=== PATIENT | female | born 1955 | race African-American/Black ===

== ENCOUNTER → 2019-07-25 11:32 | Outpatient (CLI) | payer BC, SELFPAY ==
--- NOTE | ~2019-07-25 | XR_ITS ---
XR chest 2V DATE: 07/25/2019 11:50 INDICATION: Fever, body aches, pneumonia. TECHNIQUE: PA and lateral views COMPARISON: None FINDINGS: There is mild discoid atelectasis or scarring in the right lower lobe. The lungs otherwise appear clear. No pleural effusion or pulmonary vascular congestion or pneumothorax. No hilar or media stinal enlargement. Heart size appears within upper limits of normal. There is aortic unfolding. Osteopenia. IMPRESSION: Mild discoid atelectasis or scarring, right lower lobe Reviewed, dictated and finalized at location B. INIZER
== END ==
PROVIDERS: PCP Emergency Medicine; Visit Provider Emergency Medicine
DX: J18.9 Pneumonia, unspecified organism (principal); R91.8 Other nonspecific abnormal finding of lung field
CPT/HCPCS: 71046

== ENCOUNTER 2019-07-28 17:09 | Outpatient (CLI) | payer BC, SELFPAY ==
--- NOTE | ~2019-07-28 | NM_ITS ---
EXAMINATION: NM lung vent and perfusion DATE: 07/28/2019 18:19 INDICATION: Shortness of breath. Pneumonia. TECHNIQUE: 25 mCi xenon-133 by inhalation and 3.5 mCi Tc-99m MAA by intravenous route. Scintigraphic images of the chest were obtained. COMPARISON: Chest radiograph dated 07/28/2019 FINDINGS: There is homogeneous radiotracer activity throughout the lungs on the single breath ventilation seque nce. There is relatively homogeneous perfusion throughout the lungs. No discrete ventilation and pe rfusion mismatch is identified. IMPRESSION: 1. Low probability for pulmonary embolism. Reviewed, dictated and finalized at location A. CONTROL CLERK
--- NOTE | ~2019-07-28 | XR_ITS ---
EXAMINATION: XR chest 2V DATE: 07/28/2019 18:18 INDICATION: Shortness of breath and pneumonia TECHNIQUE: PA and lateral views of the chest were obtained. COMPARISON: Chest radiograph dated 07/25/2019 FINDINGS: The lungs remain clear with no focal airspace opacities, pulmonary edema, pleural effusion or pneumot horax. The cardiomediastinal silhouette is normal. Upper thoracic kyphosis with mild spondylosis. IMPRESSION: 1. No acute cardiopulmonary disease. Reviewed, dictated and finalized at location A. TEST LEAD
== END 2019-07-28 17:10 | disposition home or self-care (01) ==
LOC: ANHIMG 17:15
PROVIDERS: PCP Emergency Medicine; Visit Provider Emergency Medicine
DX: R06.02 Shortness of breath (principal)
CPT/HCPCS: 71046; 78582; A9540; A9558

== ENCOUNTER 2019-10-04 12:07 | Outpatient (CLI) | payer BC, SELFPAY ==
[2019-10-04 12:29] LABS: Basophils Percent Auto 0.4 % (0.2-1.2); Eosinophils Absolute Auto 0.3 K/mm3 (0-0.3); Eosinophils Percent Auto 3.1 % (0-4.4); Hematocrit 37.6 % (37.0-47.0); Hemoglobin 13.1 g/dL (12.0-15.0); Immature Granulocyte Absolute 0.04 K/mm3 (0.00-0.031); Immature Granulocyte Percent A 0.4 % (0-0.5); Lymphocytes Absolute Auto 3.21 K/mm3 (0.9-3.2); Lymphocytes Percent Auto 35.5 % (18.3-44.2); Mean Corpuscular HGB Conc 34.8 g/dl (32-36); Mean Corpuscular Volume 80.3 fl (80-100); Mean Platelet Volume 10.3 fl (7.4-10.4); Monocytes Percent Auto 10.5 % (2.6-8.5); Neutrophils Absolute Auto 4.5 K/mm3 (1.3-6.7); Neutrophils Percent Auto 50.1 % (45.5-73.1); Platelet Count Result 285 k/mm3 (150-375); Red Blood Count 4.68 M/mm3 (4.2-5.4); Red Cell Distribution Width 14.5 % (11.5-14.5); White Blood Count 9.1 K/mm3 (4.5-10.0)
[2019-10-04 12:42] LABS: Alanine Aminotransferase 21 U/L (4-35); Albumin Level 3.9 g/dL (3.5-5.1); Alkaline Phosphatase 170 U/L (38-126); Aspartate Amino Transferase 33 U/L (14-36); Bilirubin,Total 0.5 mg/dL (0.2-1.3); Estimated Glomerular Filt Rate > 60
[2019-10-04 13:00] LABS: Rheumatoid Factor > 120.0 IU/ML (<12)
== END 2019-10-04 12:08 | disposition home or self-care (01) ==
PROVIDERS: PCP Emergency Medicine; Visit Provider Internal Medicine Rheumatology
DX: M05.722 Rheumatoid arthritis with rheumatoid factor of left elbow without organ or systems involvement (principal)
CPT/HCPCS: 36415; 80076; 82565; 85025; 86430

== ENCOUNTER 2019-11-10 08:59 | Outpatient (CLI) | payer BC, SELFPAY | END 2019-11-10 09:00 | disposition home or self-care (01) | PROVIDERS: PCP Emergency Medicine; Visit Provider Emergency Medicine | DX: E03.9 Hypothyroidism, unspecified (principal) | CPT/HCPCS: 36415; 84443 ==

== ENCOUNTER 2020-05-11 01:28 | Outpatient (CLI) | payer MEDICARE, SELFPAY ==
[2020-05-12 14:16] LABS: SARS-CoV-2 RNA PCR Positive
== END 2020-05-11 01:29 | disposition home or self-care (01) ==
LOC: ANHCOVIDDT 01:28
PROVIDERS: PCP Emergency Medicine; Visit Provider Internal Medicine Gastroenterology
DX: Z01.812 Encounter for preprocedural laboratory examination (principal); U07.1 COVID-19
CPT/HCPCS: 87635; C9803; U0003

== ENCOUNTER 2020-07-12 11:02 | Outpatient (CLI) | payer MEDICARE, SELFPAY | END 2020-07-12 11:03 | disposition home or self-care (01) | PROVIDERS: PCP Emergency Medicine; Visit Provider Emergency Medicine | DX: E03.9 Hypothyroidism, unspecified (principal) | CPT/HCPCS: 36415; 84443 ==

== ENCOUNTER 2020-08-02 12:32 | Outpatient (CLI) | payer MEDICARE, SELFPAY ==
--- NOTE | ~2020-08-02 | DEXA_ITS ---
Bone Density Report Name: Leisa Lowe Age: 65 Sex: Female Ethnicity: Black Date of : 1955 Indication: postmenopausal osteoporosis; height loss; cancer; rheumatoid arthritis; Referring Provider: MARTA MENDES Study: Bone densitometry was performed. Exam Date: August 02, 2020 Accession number: [id number] Bone Density: Region BMD T-score Z-score Classification AP Spine (L1, L2, L3) 0.754 -2.4 -1.4 Osteopenia Femoral Neck (Left) 0.642 -1.9 -0.9 Osteopenia Total Hip (Left) 0.700 -2.0 -1.1 Osteopenia Total Hip Bilateral Avg 0.687 -2.1 -1.2 Osteopenia Femoral Neck (Right) 0.650 -1.8 -0.8 Osteopenia Total Hip (Right) 0.673 -2.2 -1.3 Osteopenia World Health Organization criteria for BMD impression classify patients as: Normal (T-score at or above -1.0), Osteopenia (T-score between -1.0 and -2.5), or Osteoporosis (T-score at or below -2.5). 10-year Fracture Risk(1): Major Osteoporotic Fracture 5.8% Hip Fracture 0.8% Reported Risk Factors: [place] (Black), Neck BMD=0.642, BMI=28.5, rheumatoid arthritis (1) FRAX(R) Version 3.08. Fracture probability calculated for an untreated patient. Fracture probability may be lower if the patient has received treatment. Previous Exams: Region Exam Age BMD T-score BMD Change BMD Change Date g/cm2 vs Baseline vs Previous AP Spine(L1, L2, L3) 08/02/2020 65 0.754 -2.4 -0.012(-1.6%) 0.019(2.6%) 03/31/2019 64 0.735 -2.6 -0.031(-4.0%)* -0.031(-4.0%)* 05/26/2016 61 0.766 -2.3 Total Hip(Left) 08/02/2020 65 0.700 -2.0 -0.044(-5.9%)* 0.002(0.2%) 03/31/2019 64 0.699 -2.0 -0.045(-6.1%)* -0.045(-6.1%)* 05/26/2016 61 0.744 -1.6 Total Hip(Right) 08/02/2020 65 0.673 -2.2 -0.059(-8.0%)* 0.029(4.5%)* 03/31/2019 64 0.643 -2.4 -0.088(-12.0%) -0.088(-12.0%) 05/26/2016 61 0.731 -1.7 *Denotes significance at 95% confidence level, LSC for AP Spine = 0.022 g/cm2, LSC for Total Hip = 0.027 g/cm2 Clinical Information Provided by Patient: Has rheumatoid arthritis Has used the following medications: Vitamin D, Calcium Has the following medical conditions: Cancer Patient maximum height was 67 Menopause Age: 49 No regular weight bearing exercise Onset of menses at age 12 Number of children 3 Impression: The patient has low bone mass, based on the Total Spine T-score. The patient has an estimated ten-year risk of hip fracture of 0.8% and an estimated ten-year risk of ma
== END 2020-08-02 12:33 | disposition home or self-care (01) ==
LOC: ANHIMG 12:33
PROVIDERS: PCP Emergency Medicine; Visit Provider Obstetrics & Gynecology
DX: N95.1 Menopausal and female climacteric states (principal); M81.0 Age-related osteoporosis without current pathological fracture; M85.051 Fibrous dysplasia (monostotic), right thigh; M85.852 Other specified disorders of bone density and structure, left thigh
CPT/HCPCS: 77080

== ENCOUNTER → 2020-11-23 00:58 | Outpatient (CLI) | payer MEDICARE, SELFPAY ==
[2020-11-23 19:38] LABS: SARS-CoV-2 RNA PCR Negative
== END ==
PROVIDERS: PCP Emergency Medicine; Visit Provider Internal Medicine Gastroenterology
DX: Z01.812 Encounter for preprocedural laboratory examination (principal); Z20.822 Contact with and (suspected) exposure to COVID-19
CPT/HCPCS: C9803; U0003; U0005

== ENCOUNTER 2020-11-26 01:33 | Day surgery (SDC) | payer MEDICARE, SELFPAY ==
[2020-11-20 14:56] VITALS: BMI 27.4
[2020-11-26 08:01] VITALS: BP 130/85; PULSE 76; RESP 18; TEMP 36.4; O2SAT 100; BMI 27.9
[2020-11-26] MEDS: LACTATED RINGERS 1,000 ML 150 ML IV CONT (08:14)
--- NOTE | 2020-11-26 08:23 | WPDANESEPPF ---
Anes - Initial Pre Proc Eval Procedure: Operation Date: 11/26/20 09:00 Proposed Procedures p Screening Colonoscopy - Jaswinder Arndt MD Date/Time: 11/26/20 08:23 Surgeon: Jaswinder Arndt MD Pre Op Diagnosis: neoplasm screening Patient Data Age: 65 Gender: F Height: 5 ft 7 in Weight: 81 kg Last Vital Signs Temp 97.5 F L 11/26/20 08:01 Pulse 76 11/26/20 08:01 Resp 18 11/26/20 08:01 BP 130/85 11/26/20 08:01 Pulse Ox 100 11/26/20 08:01 Allergies Allergy/AdvReac Type Severity Reaction Status Date / Time Sulfa (Sulfonamide Allergy Unknown Other Verified 11/26/20 08:00 Antibiotics) Home Medications Medication Instructions Recorded Confirmed Type folic acid 1 mg tablet 1 mg PO DAILY 04/17/20 11/20/20 History hydrochlorothiazide 12.5 mg tablet 12.5 mg PO DAILY 04/17/20 11/20/20 History levothyroxine 125 mcg tablet 125 mcg PO DAILY 04/17/20 11/20/20 History methotrexate sodium 2.5 mg tablet See Rx Instructions PO WEEKLY 06/11/20 11/20/20 History black cohosh 80 mg PO DAILY 11/20/20 11/20/20 History calcium carbonate-vitamin D3 1 tablet PO DAILY 11/20/20 11/20/20 History [Calcium + D] ergocalciferol (vitamin D2) 50,000 unit PO WEEKLY 11/20/20 11/20/20 History [Vitamin D2] Patient hx anesthesia problems: none Family hx anesthesia problems: none PMFSH Past Medical History Medical History (Updated 06/11/20 @ 10:06 by Nithya Zendejas MD) History of vaginal delivery x 3 Hypertension Hypothyroidism Rheumatoid arthritis Surgical History Surgical History (Updated 06/11/20 @ 10:17 by Carley Sandoval MA) History of bunionectomy History of cataract surgery History of exploratory laparotomy History of hammertoe correction History of knee surgery History of tubal ligation Family History Family History (Updated 06/11/20 @ 09:51 by Carley Sandoval MA) Father Diabetes mellitus Mother Hyperlipidemia Other Family history of rheumatoid arthritis Social History Social History Smoking status: Never smoker Alcohol intake: never Living arrangements: with family Spiritual care concerns: No Anes - Eval Final PreProcedure Day of Procedure 11/26/20 08:23 Patient weight: overweight Heart: regular rate and rhythm Lungs: clear to auscultation Airway: Mallampati scale class II Neurological: alert and oriented Last oral intake: >/= 8 hours ASA classification: III Emergent: no Anesthetic plan: proceed Anesthesia type and monitoring: general GIVS and standard monitoring Informed Consent: The patient's anesthetic plan and its attendant risks and benefits were discussed with the patient/family/POA. Questions were solicited and answers provided to the satisfaction of the patient/family/POA.
--- NOTE | 2020-11-26 08:51 | PM.HPGS ---
History of Present Illness History of Present Illness Consent: Risks, benefits, and alternatives have been discussed and questions answered. Patient agrees to proceed with procedure. Chief complaint: neoplasm screening Narrative: Leisa Lowe is a 65 year old female with colon polyp more than 5 years ago. Review of Systems Constitutional: Constitutional: Denies headache(s) and Denies weakness Eyes: Eyes: Denies blurry vision ENT: Reports Normal hearing present, Denies headache(s) and Denies neck pain Cardiovascular: Cardiovascular: Denies chest pain and Denies dyspnea Respiratory: Respiratory: Denies dyspnea Gastrointestinal: Gastrointestinal: Reports no additional gastrointestinal complaints Genitourinary: Genitourinary: Denies dysuria Musculoskeletal: Musculoskeletal: Denies neck pain Integumentary/Breasts: Skin/Breast: Denies dry skin Neurologic: Reports Normal hearing present, Denies headache(s) and Denies weakness Psychiatric: Psychiatric: Denies anxiety Endocrine: Endocrine: Denies change in body appearance Hematologic/Lymphatic: Hematologic/Lymphatic: Denies easy bleeding Allergic/Immunologic: Allergic/Immunologic: Denies urticaria PMFSH Past Medical History Medical History (Updated 11/26/20 @ 08:52 by Jaswinder Arndt MD) Colon polyp History of vaginal delivery x 3 Hypertension Hypothyroidism Rheumatoid arthritis Surgical History Surgical History (Updated 06/11/20 @ 10:17 by Carley Sandoval MA) History of bunionectomy History of cataract surgery History of exploratory laparotomy History of hammertoe correction History of knee surgery History of tubal ligation Family History Family History (Updated 06/11/20 @ 09:51 by Carley Sandoval MA) Father Diabetes mellitus Mother Hyperlipidemia Other Family history of rheumatoid arthritis Social History Social History Smoking status: Never smoker Alcohol intake: never Living arrangements: with family Spiritual care concerns: No Meds Home Medications and Allergies Home Medications Medication Instructions Recorded Confirmed Type folic acid 1 mg tablet 1 mg PO DAILY 04/17/20 11/20/20 History hydrochlorothiazide 12.5 mg tablet 12.5 mg PO DAILY 04/17/20 11/20/20 History levothyroxine 125 mcg tablet 125 mcg PO DAILY 04/17/20 11/20/20 History methotrexate sodium 2.5 mg tablet See Rx Instructions PO WEEKLY 06/11/20 11/20/20 History black cohosh 80 mg PO DAILY 11/20/20 11/20/20 History calcium carbonate-vitamin D3 1 tablet PO DAILY 11/20/20 11/20/20 History [Calcium + D] ergocalciferol (vitamin D2) 50,000 unit PO WEEKLY 11/20/20 11/20/20 History [Vitamin D2] Allergies Allergy/AdvReac Type Severity Reaction Status Date / Time Sulfa (Sulfonamide Allergy Unknown Other Verified 11/26/20 08:00 Antibiotics) Vital Signs Vital Signs - 24 hr 11/26/20 08:01 Temperature 97.5 F L Pulse Rate 76 Respiratory Rate 18 Blood Pressure 130/85 Pulse Oximetry 100 Exam Const: General: comfortable and no acute distress HENMT: General nose exam: Normal nares present Eyes: General: appearance normal, both eyes and all related structures Neck: Neck: no JVD Resp: Auscultation: clear to auscultation bilaterally Cardio: Rate: regular rate Rhythm: regular rhythm GI: Inspection: non-distended GI Palp: Yes Soft to palpation Skin: General skin exam: normal color Neuro: General: gait normal Speech: normal speech Extrem: General: normal to inspection Psych: Mental Status: mental status grossly normal Assessment and Plan Assessment and plan (1) Colon polyp: Code(s): K63.5 - Polyp of colon Status: Acute Assessment and Plan: colonoscopy
[2020-11-26 09:11] VITALS: BP 113/74; PULSE 82; RESP 22; O2SAT 100
[2020-11-26 09:21] VITALS: BP 122/75; PULSE 73; RESP 16; O2SAT 100
[2020-11-26 09:31] VITALS: BP 132/93; PULSE 69; RESP 24; O2SAT 100
== END 2020-11-26 09:44 | disposition home or self-care (01) ==
PROVIDERS: PCP Emergency Medicine; Visit Provider Internal Medicine Gastroenterology
PROC: 0DJD8ZZ Inspection of Lower Intestinal Tract, Via Natural or Artificial Opening Endoscopic (ICD-10-PCS; CPT 45378; principal; 2020-11-26 09:00)
DX: Z12.11 Encounter for screening for malignant neoplasm of colon (principal); Z86.010 Personal history of colon polyps; K64.8 Other hemorrhoids; E03.9 Hypothyroidism, unspecified; M06.9 Rheumatoid arthritis, unspecified; I10 Essential (primary) hypertension
CPT/HCPCS: G0105; C9803; J2704; J7120; U0003; U0005

== ENCOUNTER 2021-03-24 08:22 | Outpatient (CLI) | payer MEDICARE, SELFPAY ==
[2021-03-24 09:05] LABS: Anion Gap 3 mmol/L (8-16); Blood Urea Nitrogen 14 mg/dL (7-17); Calcium 8.9 mg/dL (8.4-10.2); Carbon Dioxide 32 mmol/L (22-30); Chloride 104 mmol/L (98-107); Estimated Glomerular Filt Rate > 60; Glucose 100 mg/dL (65-110); Potassium 3.6 mmol/L (3.4-5.0); Sodium 139 mmol/L (137-145)
== END 2021-03-24 08:23 | disposition home or self-care (01) ==
LOC: ANHSURGERY 08:27
PROVIDERS: Anesthesiology; PCP Emergency Medicine; Visit Provider Podiatrist Foot & Ankle Surgery
DX: Z01.818 Encounter for other preprocedural examination (principal); I10 Essential (primary) hypertension
CPT/HCPCS: 36415; 80048

== ENCOUNTER 2021-03-28 01:04 | Day surgery (SDC) | payer MEDICARE, SELFPAY ==
[2021-03-20 14:16] VITALS: BMI 27.8
--- NOTE | ~2021-03-28 | XR_ITS ---
EXAMINATION: XR surgery orthopedic DATE: 03/28/2021 12:01 INDICATION: Left foot surgery TECHNIQUE: 2 fluoroscopic images of the left forefoot were obtained during procedure performed by Dr. Wheeler. Radiologist was not present for the imaging or procedure. The amount of fluoroscopy time u sed during this procedure was 0.1 minutes. COMPARISON: None. FINDINGS: Left second proximal interphalangeal joint arthrodesis with placement of a compression screw fixation over an axially directed percutaneous pin which extends from the tuft of the distal phalanx througho ut the second toe to the head of the second metatarsal. Expected small amount of soft tissue gas at t he operative bed. Chronic appearing osteotomies at the heads of the third-fifth proximal phalanges. A dditional chronic appearing osteotomies likely for hallux valgus correction with pin fixations at the neck of the first metatarsal across the diaphysis of the first proximal phalanx. There appears also been a prior bunionectomy. Alignment of the left forefoot appears near-anatomic. No acute fracture. IMPRESSION: 1. Fluoroscopy utilized during second proximal interphalangeal joint arthrodesis with compression scr ew fixation. 2. Additional chronic-appearing postoperative changes in the forefoot. Correlate with surgical histor y. Reviewed, dictated and finalized at location A. IMPRESSION: 1. Fluoroscopy utilized during second proximal interphalangeal joint arthrodesi s with compression screw fixation. 2. Additional chronic-appearing postoperative changes in the forefoot. Correlat e with surgical history.
--- NOTE | 2021-03-28 07:19 | WPDHPUPDATE1 ---
History and Physical Update Update Date/Time: 03/28/21 07:19 History and Physical has been reviewed, including an updated exam of the patient. There are NO changes in the patient's condition. Risks, benefits, and alternatives have been discussed and questions answered. Patient agrees to proceed with procedure.
[2021-03-28] MEDS: LACTATED RINGERS 1,000 ML 30 ML IV CONT (09:30)
[2021-03-28 09:45] VITALS: BP 130/83; PULSE 67; RESP 16; TEMP 36.3; O2SAT 100
--- NOTE | 2021-03-28 09:47 | WPDANESEPPF ---
Anes - Initial Pre Proc Eval Procedure: Operation Date: 03/28/21 11:00 Proposed Procedures p Proximal Interphalangeal Joint Arthrodesis Second Digit Left Foot - Jeremiah Wheeler JR, MD Date/Time: 03/28/21 09:47 Surgeon: Jeremiah Wheeler JR, MD Pre Op Diagnosis: Mortons Toe Left Foot Patient Data Age: 66 Gender: F Height: 1.7 m Weight: 80.75 kg Allergies Allergy/AdvReac Type Severity Reaction Status Date / Time Sulfa (Sulfonamide Allergy Unknown Nausea Verified 03/20/21 14:02 Antibiotics) Home Medications Medication Instructions Recorded Confirmed Type folic acid 1 mg tablet 1 mg PO DAILY 04/17/20 03/20/21 History hydrochlorothiazide 12.5 mg tablet 12.5 mg PO DAILY 04/17/20 03/20/21 History levothyroxine 125 mcg tablet 125 mcg PO DAILY 04/17/20 03/20/21 History methotrexate sodium 2.5 mg tablet See Rx Instructions PO WEEKLY 06/11/20 03/20/21 History black cohosh 80 mg PO DAILY 11/20/20 03/20/21 History calcium carbonate-vitamin D3 1 tablet PO DAILY 11/20/20 03/20/21 History [Calcium + D] ergocalciferol (vitamin D2) 50,000 unit PO WEEKLY 11/20/20 03/20/21 History [Vitamin D2] nabumetone 500 mg PO DAILY 03/20/21 03/20/21 History Patient hx anesthesia problems: none Family hx anesthesia problems: none Results Review: All pre-operative results and documents have been reviewed as part of the pre-operative evaluation. [facility] Past Medical History Medical History Colon polyp History of vaginal delivery x 3 Hypertension Hypothyroidism Rheumatoid arthritis Surgical History Surgical History History of bunionectomy History of cataract surgery History of exploratory laparotomy History of hammertoe correction History of knee surgery History of tubal ligation Family History Family History Father Diabetes mellitus Mother Hyperlipidemia Other Family history of rheumatoid arthritis Social History Social History Smoking status: Never smoker Alcohol intake: never Living arrangements: with family Spiritual care concerns: No Anes - Eval Final PreProcedure Day of Procedure 03/28/21 09:47 Patient weight: overweight Heart: regular rate and rhythm Lungs: clear to auscultation Airway: Mallampati scale class II Neurological: alert and oriented Last oral intake: >/= 8 hours ASA classification: III Emergent: no Anesthetic plan: proceed Anesthesia type and monitoring: general GIVS and standard monitoring Results Review: All pre-operative results and documents have been reviewed as part of the pre-operative evaluation. Informed Consent: The patient's anesthetic plan and its attendant risks and benefits were discussed with the patient/family/POA. Questions were solicited and answers provided to the satisfaction of the patient/family/POA.
[2021-03-28] MEDS: ceFAZolin 2 GM/D5W 50 ML 2 GM/50 ML BAG IVPB (11:20)
[2021-03-28] MEDS: LIDOCAINE HCL 2% PF INJ 5 ML VIAL 10 ML INFILTRATE (11:43)
[2021-03-28] MEDS: BUPIVACAINE HCL 0.5% PF 30 ML VIAL 5 ML INFILTRATE (11:45)
[2021-03-28 12:05] VITALS: BP 137/79; PULSE 71; RESP 12; O2SAT 100
--- NOTE | 2021-03-28 12:10 | W.PM.PROC2 ---
Procedure Note - Detailed Date of Procedure 03/28/21 Pre-op Diagnosis Mortons Toe Left Foot Post-op Diagnosis same Procedure Performed Arthrodesis of the proximal interphalangeal joint of the left 2nd digit Surgeon Jeremiah Wheeler JR, DPMargot Anesthesia MAC and local Indications Painful elongated 2nd toe left foot Description of Procedure Under mild sedation, the patient was brought to the operating room, placed on the operating table in the supine position. A pneumatic ankle tourniquet was placed about the patient's ankle. Following general anesthesia, I performed a proximal 2nd metatarsal Omalley Block. The foot was then scrubbed, prepped, and draped in the usual aseptic manner. An Esmarch bandage was then used to examine the patient's foot and pneumatic ankle tourniquet was then inflated. Surgery began in the following manner. Attention was directed to the second digit of the left foot where a 3cm incision was made from the distal interphlangeal joint extending to the 2nd metatarsal head. A transverse tenotomy was created dorsal to the proximal interphalangeal joint, next the head of the proximal phalanx was resected with an oscillating saw blade, the [employer] hammertoe planer was used to denude and prepare the joint for the hammertoe implant from the base of the middle phalanx and distal proximal phalanx. I made sure to adequately shorten the lenght of the 2nd digit. Next, I implanted the [employer] Phalinx size medium hammertoe implant in a cannulated fashion using standard technique. Fluoroscopy was used to make sure that the digit and implant were appropriately positioned. I also used the K wire to hold the 2nd digit in a rectus position by driving the K wire into the 2nd metatarsal. I reapproximated the subcutaneous structures with 4.0 Vicryl and the skin with 4-0 Monocryl. Upon completion of the procedure, the incision was dressed with Steri-Strips, Adaptic, 4 x 4's, Kerlix, and Coban. The pneumatic ankle tourniquet was then deflated and a prompt hyperemic response noted to all digits of the foot. A surgical shoe was then applied. The patient did very well with the procedure and the anesthesia. The patient was transferred to the recovery room with vital signs stable and vascular status intact to all remaining toes of the affected foot. Following a period of postoperative monitoring, the patient will be discharged home on the following written and oral postoperative instructions: 1. Keep the dressing clean, dry, and intact. Use a cast protector bag with showers. 2. The patient should use a surgical shoe for ambulation postoperatively. 3. The patient should be on bedrest with bathroom priviliges and elevate the affected foot when at rest. 4. The patient to contact Dr. Wheeler for all postop care and if any problems arise. 5. Prescriptions were written for Percocet 5/325 dispensed 40 to be taken 1 p.o. q.4 to 6 hours as needed for severe pain. Implants [employer] Medium Phalinx Implant Estimated Blood Loss 1 Drains No Packing No Pathology none sent Complications No immediate complications Condition stable Disposition same day
[2021-03-28 12:35] VITALS: BP 145/78; PULSE 67; RESP 12; O2SAT 97
[2021-03-28 13:00] VITALS: BP 149/85; PULSE 66; RESP 16
[2021-03-28] MEDS: oxyCODONE HCL (*CRX) 5 MG TAB IR PO (13:01)
[2021-03-28 13:30] VITALS: BP 150/79; PULSE 74; RESP 16
[2021-03-28 14:00] VITALS: BP 149/85; PULSE 66; RESP 16
--- NOTE | 2021-03-28 14:46 | SUR.PHASEII ---
1410 PT DRESSED. AWAITING RIDE.
== END 2021-03-28 14:47 | disposition home or self-care (01) ==
PROVIDERS: PCP Emergency Medicine; Visit Provider Podiatrist Foot & Ankle Surgery
PROC: (CPT 28750; principal; 2021-03-28 11:00)
DX: M20.5X2 Other deformities of toe(s) (acquired), left foot (principal); E03.9 Hypothyroidism, unspecified; I10 Essential (primary) hypertension; M06.9 Rheumatoid arthritis, unspecified
CPT/HCPCS: 28285; 36415; 80048; A9270; C1776; J0690; J1100; J2250; J2405; J2704; J3010; J7120

== ENCOUNTER 2021-05-22 13:52 | Outpatient (CLI) | payer MEDICARE, SELFPAY ==
[2021-05-22 14:42] LABS: Basophils Percent Auto 0.4 % (0.2-1.2); Eosinophils Absolute Auto 0.1 K/mm3 (0-0.3); Eosinophils Percent Auto 1.6 % (0-4.4); Hematocrit 36.9 % (37.0-47.0); Hemoglobin 13.3 g/dL (12.0-15.0); Immature Granulocyte Absolute 0.02 K/mm3 (0.00-0.031); Immature Granulocyte Percent A 0.3 % (0-0.5); Lymphocytes Absolute Auto 1.54 K/mm3 (0.9-3.2); Mean Corpuscular Hemoglobin 30.9 pg (26-34); Mean Corpuscular Volume 85.6 fl (80-100); Mean Platelet Volume 10.7 fl (7.4-10.4); Monocytes Absolute Auto 1.4 K/mm3 (0.1-0.6); Monocytes Percent Auto 21.2 % (2.6-8.5); Neutrophils Absolute Auto 3.6 K/mm3 (1.3-6.7); Neutrophils Percent Auto 53.5 % (45.5-73.1); Platelet Count Result 195 k/mm3 (150-375); Red Blood Count 4.31 M/mm3 (4.2-5.4); Red Cell Distribution Width 14.6 % (11.5-14.5); White Blood Count 6.7 K/mm3 (4.5-10.0)
[2021-05-22 15:00] LABS: CRP < 0.5 mg/dL (<1.0)
[2021-05-22 15:56] LABS: Erythrocyte Sedimentation Rate 18 mm/hr (0-20)
[2021-05-22 16:29] LABS: Crystals Synovial Fluid None Seen (None Seen)
[2021-05-22 16:32] LABS: Appearance Synovial Fluid Bloody (Clear); Color Synovial Fluid Red (Colorless); Source Synovial Fluid Synovial fluid
[2021-05-22 16:33] LABS: Lymphocytes Synovial Fluid 26 %; Macrophages Synovial Fluid 20 %; Monocytes Synovial Fluid 28 %; Neutrophils Synovial Fluid 26 % (0-25); Nucleated Cell Synovial Fluid 13741 /uL (0-200)
== END 2021-05-22 13:53 | disposition home or self-care (01) ==
PROVIDERS: PCP Emergency Medicine; Visit Provider Orthopaedic Surgery
DX: M25.461 Effusion, right knee (principal); Z96.651 Presence of right artificial knee joint
CPT/HCPCS: 36415; 85025; 85652; 86140; 89051; 89060

== ENCOUNTER 2021-08-01 14:38 | Outpatient (CLI) | payer MEDICARE, SELFPAY ==
--- NOTE | ~2021-08-01 | MR_ITS ---
EXAMINATION: MR ankle RT wo con DATE: 08/01/2021 15:49 INDICATION: Plantar fasciitis of right foot. Right ankle pain. TECHNIQUE: Magnetic resonance imaging (MRI) of the right ankle was performed without intravenous cont rast. Sequences included sagittal PD-weighted FS FSE, sagittal PD-weighted FSE, coronal PD-weighted F S FSE, coronal PD-weighted FSE, axial PD-weighted FS FSE, and axial PD-weighted FSE. COMPARISON: None. FINDINGS: Medial ankle ligaments: There is heterotopic ossification distal to medial malleolus. There are changes of prior sprain of th e deltoid ligament characterized by increased signal intensity in the superficial component and some disorganized fibers in the deep component. Lateral ankle ligaments: There are changes of prior sprains of talofibular ligament and calcaneofibular ligament characterized by thickening and increased signal intensity. Posterior talofibular ligament is intact. There are ch anges of prior sprain of anterior tibiofibular ligament characterized by increased signal intensity. Posterior tibiofibular ligament is intact. Tendons: There is a longitudinal split tear of peroneus brevis tendon. Peroneus longus tendon is normal. The a nterior and medial ankle tendons are normal. Achilles tendon is normal. Plantar fascia: Normal. Bones/other: Bone alignment is normal. There is an extra-articular stress fracture of body of calcaneus characteri zed by low signal fracture line and surrounding edema-like signal intensity. The talar dome is normal . Fluid: There are small ankle and subtalar joint effusions. IMPRESSION: 1. Stress fracture of body of calcaneus. 2. Normal plantar fascia. 3. Longitudinal split tear of peroneus brevis tendon. Reviewed, dictated and finalized at location E. ING FINISHER
== END 2021-08-01 14:39 ==
LOC: MICIMG 14:39
PROVIDERS: PCP Emergency Medicine; Visit Provider Podiatrist Foot & Ankle Surgery
DX: M72.2 Plantar fascial fibromatosis (principal); M76.71 Peroneal tendinitis, right leg; M84.371A Stress fracture, right ankle, initial encounter for fracture; S96.811A Strain of other specified muscles and tendons at ankle and foot level, right foot, initial encounter
CPT/HCPCS: 73721

== ENCOUNTER 2021-08-26 10:13 | Outpatient (CLI) | payer MEDICARE, SELFPAY ==
--- NOTE | 2021-08-26 10:15 | ECG_ITS ---
Measurements Intervals [place] Rate: 71 P: 48 ND: 124 QRS: 11 QRSD: 83 T: 8 QT: 402 QTc: 439 Interpretive Statements SINUS RHYTHM RIGHT VENTRICULAR CONDUCTION DELAY COMPARED TO ECG 09/28/2018 14:31:04 NO SIGNIFICANT CHANGES Electronically Signed On 08-26-2021 11:29:56 MEAT TRIMMER by Dallas Candelario M.D.
[2021-08-26 10:52] LABS: Anion Gap 3 mmol/L (8-16); Blood Urea Nitrogen 14 mg/dL (7-17); Calcium 8.7 mg/dL (8.4-10.2); Carbon Dioxide 34 mmol/L (22-30); Chloride 105 mmol/L (98-107); Estimated Glomerular Filt Rate > 60; Glucose 98 mg/dL (65-110); Potassium 3.5 mmol/L (3.4-5.0); Sodium 142 mmol/L (137-145)
== END 2021-08-26 10:14 | disposition home or self-care (01) ==
LOC: ANHSURGERY 10:16
PROVIDERS: Anesthesiology; PCP Emergency Medicine; Visit Provider Orthopaedic Surgery
DX: Z01.818 Encounter for other preprocedural examination (principal); I10 Essential (primary) hypertension; I45.9 Conduction disorder, unspecified
CPT/HCPCS: 36415; 80048; 93005

== ENCOUNTER 2021-08-29 01:53 | Day surgery (SDC) | payer MEDICARE, SELFPAY ==
--- NOTE | 2021-08-25 15:26 | PC.NURSE ---
Report to the Outpatient Waiting Room, entrance under the green pavilion located off [facility], at time 1100 on date __08/29/21 . OR Time: _1300 . - You and your visitor will be asked a series of questions to screen for COVID 19 for your protection. - A mask is required within the hospital. Preoperative COVID Testing Requirements: No COVID Test needed if: (proof is required; if not received patient will have Rapid Test prior to entry) - Patient has received COVID Vaccine at least 14 days prior to procedure date or - Patient has positive COVID test result within last 90 days of surgery date. COVID Test needed if above criteria is not met If not COVID vaccinated a COVID test must be conducted within 72 hours of surgery and patient is asked to isolate self from time of testing until procedure. You will go to the [facility] for your COVID testing. The [facility] is located at the corner of [address] [facility]. You will only be called if COVID results are positive and your surgeon may reschedule your elective surgery date. Patients may have clear liquids (water, carbonated beverages, clear teas, apple juice) until 3 hours prior to surgery with a maximum of 20 ounces. - No food from midnight until time of surgery Take the following medications with a SIP of water the morning of surgery: ____LEVOTHYROXINE Medications to discontinue per physician ____ALL VITAMINS AND SUPPLEMENTS 3 DAYS PRE OP Date to take last dose____08/25/21 Please no make-up, nail eritrean, hairspray, perfume, deodorant, or body powder the day of surgery. No jewelry (including any body piercings) or valuables the day of surgery, leave them at home. Please take a shower or bath the night before, or the morning of, surgery with an antibacterial soap. Wear comfortable, loose fitting clothing. Children are encouraged to wear pajamas. - Jewelry must be removed prior to entering the operating room. Rings and piercings that are not removed may be cut off. - The hospital will not accept responsibility for valuables. - Please leave all valuables, including medications, at home the day of surgery. If you are going home after surgery, a licensed ice delivery driver must drive you home. - NO public transportation without another adult. - We recommend that an adult stay with you for 24 hours following discharge. - We also recommend that you do not drive, make important decision, drink alcoholic beverages, or take any drugs that were not prescribed by your health care provider for at least 24 hours after your discharge time. One visitor will be allowed to accompany the patient into the hospital. Patients visitor will be instructed to remain with patient at all times or leave the building. We will allow the visitor to come back to the postoperative area when patient is ready. Follow any additional instructions given to you from your surgeon. Telephone instructions given to __PATIENT and asked if any additional questions and then verbalized understanding. Patient advised to call surgeon office or pre surgery nurse liaison [phone] if any additional questions.
[2021-08-25 15:34] VITALS: BMI 32.5
[2021-08-29] VITALS (9 sets, daily range): BP systolic 132–158; BP diastolic 65–95; PULSE 63–76; RESP 11–16; TEMP 36.4–36.8; O2SAT 94–100
--- NOTE | 2021-08-29 08:55 | P.PNAN_ITS ---
Anes - Initial Pre Proc Eval Procedure: Operation Date: 08/29/21 13:00 Proposed Procedures p Arthroscopic Synovectomy Right Knee - Dontae Eaton MD Date/Time: 08/29/21 08:55 Surgeon: Dontae Eaton MD Pre Op Diagnosis: Synovitis Rt Knee Patient Data Age: 66 Gender: F Height: 1.63 m Weight: 86.2 kg Allergies Allergy/AdvReac Type Severity Reaction Status Date / Time Sulfa (Sulfonamide Allergy Unknown Nausea Verified 08/29/21 11:07 Antibiotics) Home Medications Medication Instructions Recorded Confirmed Type folic acid 1 mg tablet 1 mg PO DAILY 04/17/20 08/29/21 History hydrochlorothiazide 12.5 mg tablet 12.5 mg PO DAILY 04/17/20 08/29/21 History levothyroxine 125 mcg tablet 125 mcg PO DAILY 04/17/20 08/29/21 History methotrexate sodium 2.5 mg tablet See Rx Instructions PO WEEKLY 06/11/20 08/29/21 History black cohosh 80 mg PO DAILY 11/20/20 08/29/21 History calcium carbonate-vitamin D3 1 tablet PO DAILY 11/20/20 08/29/21 History ergocalciferol (vitamin D2) 50,000 unit PO WEEKLY 11/20/20 08/29/21 History [Vitamin D2] nabumetone 500 mg PO DAILY 03/20/21 08/29/21 History hydrocodone 5 mg-acetaminophen 325 1 - 2 tablet PO Q6H PRN #30 tablet 08/12/21 08/25/21 Rx mg tablet MDD 6 Patient hx anesthesia problems: none Family hx anesthesia problems: none Results Review: All pre-operative results and documents have been reviewed as part of the pre-operative evaluation. [facility] Past Medical History Medical History Colon polyp History of vaginal delivery x 3 Hypertension Hypothyroidism Rheumatoid arthritis Surgical History Surgical History History of bunionectomy History of cataract surgery History of exploratory laparotomy History of hammertoe correction History of knee surgery History of total right knee replacement (~11/29/18) History of tubal ligation Family History Family History Father Diabetes mellitus Mother Hyperlipidemia Other Family history of rheumatoid arthritis Social History Social History Smoking status: Never smoker Alcohol intake: never Living arrangements: with family Spiritual care concerns: No Anes - Eval Final PreProcedure Day of Procedure 08/29/21 08:55 Patient weight: obese Heart: regular rate and rhythm Lungs: clear to auscultation and normal air movement Airway: Mallampati scale class III Neurological: alert and oriented Last oral intake: >/= 8 hours ASA classification: III Emergent: no Anesthetic plan: proceed Anesthesia type and monitoring: general LMA and standard monitoring Results Review: All pre-operative results and documents have been reviewed as part of the pre-operative evaluation. Informed Consent: The patient's anesthetic plan and its attendant risks and benefits were discussed with the patient/family/POA. Questions were solicited and answers provided to the satisfaction of the patient/family/POA.
--- NOTE | 2021-08-29 11:17 | W.PM.PROC2 ---
Procedure Note - Detailed Date of Procedure 08/29/21 Pre-op Diagnosis Synovitis right Knee with recurrent hemarthrosis, s/p total knee arthroplasty. Post-op Diagnosis Same Procedure Performed Arthroscopic synovectomy right knee. Surgeon Dontae Eaton MD Staff Command And Control Officer Laure King PA-C Anesthesia General Indications Recurrent painful hemarthrosis, right knee. Findings Large hemarthrosis with synovial hemosiderin staining. No proliferative global synovitis. Primarily lateral synovial hypertrophy and scarring. A large vessel lumen observed and cauterized. Another vessel at the femoral notch observed and cauterized. This was on a notable stalk of tissue. There were two small bony prominences of lateral femoral condyle, possibly causing local tissue irritation. These were smoothed down flush. Moderate proliferative scar about the patella. The implant appeared normal. The patella tracked more centrally after the lateral synovial tissue resection. Exam under anesthesia was unrevealing. Description of Procedure The patient was identified and the surgical site confirmed and signed in the preoperative holding area. Antibiotics were started per protocol. She was brought to the operative room and transferred to the OR table. A general anesthetic was administered. Supine position with the operative lower extremity position in the leg gonzalez after placement of a well padded tourniquet. The leg support was lowered and the contralateral limb was supported with a soft bolster. The knee was prepped and draped in the usual sterile fashion. A time-out was performed. The portal sites were marked and infiltrated with 0.5% Marcaine 20 mL. The limb was exsanguinated and the tourniquet inflated to 300 mL Hg. Standard inferolateral and inferomedial portals were established. Inflow was obtained with the saline pump. The camera was introduced. Diagnostic inspection of the joint was accomplished. The hypertrophic synovium, capsulitis, surgical scar tissue, and prominent lateral bone were debrided with the arthroscopic shaver. The radiofrequency probe was also used for further d?bridement, and cauterization of the two observed arterial lumens. The tourniquet was release and hemostasis confirmed. The arthroscopic instruments were removed. The wounds closed with subcutaneous 4-0 Monocryl absorbable suture. Steri strips and a sterile dressing were applied. A light elastic wrap was placed. The patient was extubated and brought to the recovery room in stable condition. Estimated Blood Loss -20.0 Drains No Packing No Pathology None sent Complications No immediate complications Condition Stable Disposition PACU
[2021-08-29] MEDS: ACETAMINOPHEN 500 MG TABLET 1000 MG PO (11:23)
--- NOTE | 2021-08-29 11:56 | WPDHPUPDATE1 ---
History and Physical Update Update Date/Time: 08/29/21 11:56 History and Physical has been reviewed, including an updated exam of the patient. There are NO changes in the patient's condition. Risks, benefits, and alternatives have been discussed and questions answered. Patient agrees to proceed with procedure.
[2021-08-29] MEDS: LACTATED RINGERS 1,000 ML 30 ML IV CONT ×2 (11:58→13:34)
[2021-08-29] MEDS: KETOROLAC 15 MG/ML VIAL (*BKC) IV PUSH ×2 (11:59→15:47)
[2021-08-29] MEDS: ceFAZolin 2 GM/D5W 50 ML 2 GM/50 ML BAG IVPB (12:12)
[2021-08-29] MEDS: BUPIVACAINE/EPINEPHRINE 0.25% 50 ML VIAL 30 ML INFILTRATE (12:34)
[2021-08-29] MEDS: fentaNYL CITRATE INJ (*CRX) 100 MCG/2 ML VIAL 25 MCG IV PUSH ×7 (13:50→14:36)
[2021-08-29] MEDS: oxyCODONE HCL (*CRX) 5 MG TAB IR PO (15:19)
== END 2021-08-29 17:00 | disposition home or self-care (01) ==
PROVIDERS: PCP Emergency Medicine; Visit Provider Orthopaedic Surgery
PROC: (CPT 29870; principal; 2021-08-29 12:00)
DX: M25.061 Hemarthrosis, right knee (principal); M65.861 Other synovitis and tenosynovitis, right lower leg; Z96.651 Presence of right artificial knee joint; I10 Essential (primary) hypertension; E03.9 Hypothyroidism, unspecified; M06.9 Rheumatoid arthritis, unspecified; E66.9 Obesity, unspecified; Z68.32 Body mass index [BMI] 32.0-32.9, adult
CPT/HCPCS: 29875; 36415; 80048; 93005; A9270; J0690; J1100; J1885; J2250; J2405; J2704; J3010; J7120

== ENCOUNTER 2021-09-12 09:36 | Outpatient (CLI) | payer MEDICARE, SELFPAY ==
--- NOTE | ~2021-09-12 | XR_ITS ---
XR chest 2V DATE: 09/12/2021 09:57 INDICATION: Dyspnea on exertion TECHNIQUE: PA and lateral views COMPARISON: July 28, 2019 PA and lateral chest FINDINGS: Heart size is within normal range. Mild aortic unfolding. No hilar or mediastinal enlargeme nt. Mild bilateral hyperinflation. No pulmonary infiltrate or consolidation, pleural effusion or pulmonar y vascular congestion or pneumothorax. Osteopenia. IMPRESSION: No active cardiopulmonary disease Reviewed, dictated and finalized at location A.
== END 2021-09-12 09:37 | disposition home or self-care (01) ==
LOC: ANHIMG 09:39
PROVIDERS: PCP Emergency Medicine; Visit Provider Emergency Medicine
DX: R06.00 Dyspnea, unspecified (principal)
CPT/HCPCS: 71046

== ENCOUNTER 2021-09-16 07:54 | Outpatient (CLI) | payer MEDICARE, SELFPAY ==
--- NOTE | ~2021-09-16 | XR_ITS ---
EXAMINATION: XR UGIAC w barium swallow DATE: 09/16/2021 08:47 INDICATION: Dysphagia TECHNIQUE: The patient drank thick barium, gas-producing crystals, and thin barium. A total of 1270 f luoroscopic images of the esophagus, stomach, and proximal small bowel were obtained. Fluoroscopy exp osure time was 2.6 minutes. COMPARISON: None. FINDINGS: The esophagus is normal without mass or stricture. Esophageal motility is within normal dinh its for age. Small sliding-type hiatal hernia with gastroesophageal junction proximally 5 cm above le bowen of the diaphragm. There was no gastroesophageal reflux with provocative maneuvers. The stomach an d proximal small bowel are normal. IMPRESSION: 1. Small sliding-type hiatal hernia. Reviewed, dictated and finalized at location A.
--- NOTE | ~2021-09-16 | US_ITS ---
EXAMINATION: US venous doppler [facility] DATE: 09/16/2021 09:15 INDICATION: Venous insufficiency TECHNIQUE: Grayscale ultrasound images without and with compression and Doppler ultrasound images of the bilateral lower extremity veins were obtained. COMPARISON: None. FINDINGS: The visualized portions of right common femoral vein, profunda (deep) femoral vein, femoral vein, pop liteal vein, posterior tibial veins, peroneal veins, gastrocnemius vein and greater saphenous vein ou tflow are patent. The visualized portions of left common femoral vein, profunda femoral vein, femoral vein, popliteal v ein, posterior tibial veins, peroneal veins, gastrocnemius vein and greater saphenous vein outflow ar e patent. IMPRESSION: 1. No deep venous thrombosis in either lower limb. Reviewed, dictated and finalized at location A.
== END 2021-09-16 07:55 | disposition home or self-care (01) ==
LOC: ANHIMG 07:59
PROVIDERS: PCP Emergency Medicine; Visit Provider Emergency Medicine
DX: R13.10 Dysphagia, unspecified (principal); I87.2 Venous insufficiency (chronic) (peripheral); K44.9 Diaphragmatic hernia without obstruction or gangrene; M79.89 Other specified soft tissue disorders
CPT/HCPCS: 74246; 93970

== ENCOUNTER 2021-10-14 07:03 | Outpatient (CLI) | payer MEDICARE, SELFPAY ==
--- NOTE | 2021-10-14 | ECHO_ITS ---
Patient Info Name: Leisa Lowe Age: 66 years : 1955 Gender: Female Ht: 64 in Wt: 185 lbs BSA: 1.98 m2 HR: 85 bpm BP: 160 / 116 mmHg Technical Quality: Good Exam Date: 10/14/2021 7:52 AM Exam Location: [facility] Patient Status: Outpatient Admit Date: 10/14/2021 Staff Ordering Physician: Alex Bauer MD Electric Meter Repairer Helper: Dillon Paez RDCS, RT Attending Provider: Alex Bauer MD Referring Physician: Juancarlos RAMIREZ; Exam Type: CA echo doppler color flow Study Info Indications R06.00 - Dyspnea, unspecified Complete two-dimensional, color flow and Doppler transthoracic echocardiogram is performed. Strain analysis performed. Summary 1. Complete two-dimensional, color flow and Doppler transthoracic echocardiogram is performed. 2. Left ventricular chamber dimension is normal. 3. Left ventricular systolic function is normal, estimated at 65-70%. 4. The left ventricular diastolic function is grade I diastolic dysfunction. 5. E/e' 8 is minimally elevated. 6. Global longitudinal strain is normal at -17.5%. 7. There is mild tricuspid valve regurgitation. 8. Mild pulmonary hypertension, estimated pulmonary arterial systolic pressure is 40 mmHg. 9. Dilated inferior vena cava with >50% collapse upon inspiration consistent with elevated right atrial pressure, 10 mmHg. Left Ventricle E/e' 8 is minimally elevated. Global longitudinal strain is normal at -17.5%. Left ventricular chamber dimension is normal. Left ventricular systolic function is normal, estimated at 65-70%. The left ventricular diastolic function is grade I diastolic dysfunction. Right Ventricle Right ventricular systolic function is normal and with normal TAPSE 2.2 cm. Right ventricular chamber dimension is normal. Left Atria Left atrial chamber dimension is normal. Right Atria Right atrial chamber dimension is normal. Aortic Valve The aortic valve is trileaflet. There is no aortic valve stenosis. There is no aortic valve regurgitation. Pulmonic Valve There is no pulmonic regurgitation. Mitral Valve There is no mitral valve stenosis. There is no mitral valve regurgitation. Tricuspid Valve There is mild tricuspid valve regurgitation. Mild pulmonary hypertension, estimated pulmonary arterial systolic pressure is 40 mmHg. Pericardium/Pleural There is no pericardial effusion. Inferior Vena Cava Dilated inferior vena cava with >50% collapse upon inspiration consistent with elevated right atrial pressure, 10 mmHg. Aorta The aortic root size at the sinus of Valsalva is normal. Left Ventricular Outflow Tract Name Value Normal LVOT 2D LVOT Diameter 2.0 cm LVOT Doppler LVOT Peak Gradient 2 mmHg LVOT Mean Gradient 1 mmHg LVOT VTI 18 cm LVOT VTI/AV VTI Ratio 0.8 LVOT Stroke Volume 58 ml LVOT CO 4.1 l/min LVOT CI 2.1 l/min/m2 Mitral Valve
== END 2021-10-14 07:04 | disposition home or self-care (01) ==
PROVIDERS: PCP Emergency Medicine; Visit Provider Emergency Medicine
DX: I27.20 Pulmonary hypertension, unspecified (principal); I36.1 Nonrheumatic tricuspid (valve) insufficiency; R06.00 Dyspnea, unspecified
CPT/HCPCS: 93306

== ENCOUNTER 2022-01-26 13:32 | Outpatient (CLI) | payer MEDICARE, SELFPAY ==
--- NOTE | ~2022-01-26 | CT_ITS ---
EXAMINATION: CTA chest PE protocol DATE: 01/26/2022 13:58 INDICATION: Shortness of breath, cough for 2 months TECHNIQUE: Computed tomography angiography (CTA) of the chest was performed with 100 mL Omnipaque-350 intravenous contrast timed to evaluate the pulmonary arteries. Coronal maximum intensity projection 3D-reconstructions were created by the technologist. Automated exposure control and iterative reconst ruction technique were employed. Exam dose: 232.11 mGy-cm total exam DLP. COMPARISON: 09/12/2021 PA and lateral chest FINDINGS: There is diagnostic contrast enhancement of the pulmonary arteries and no evidence of pulmo nary embolism. No thoracic aortic aneurysm or dissection is evident. No hilar or mediastinal mass lesion or lymphadenopathy. Normal heart size. No pleural effusion. Scattered minimal bilateral dependent and discoid atelectasis or scarring of the lungs. No pulmonary infiltrate or consolidation. Incidentally noted is prominent right hydroureteronephrosis and right pelviectasis. Mild left hydrone phrosis. Degenerative disc disease of lower cervical spine, mild degenerative spurring of the thoracic spine. IMPRESSION: No evidence of pulmonary embolism Bilateral hydronephrosis, greater on the right Reviewed, dictated and finalized at Location A. Reviewed, dictated and finalized at location B.
[2022-01-26 13:53] LABS: Estimated Glomerular Filt Rate > 60
== END 2022-01-26 13:33 | disposition home or self-care (01) ==
PROVIDERS: PCP Emergency Medicine; Visit Provider Emergency Medicine
DX: R06.02 Shortness of breath (principal); N20.0 Calculus of kidney
CPT/HCPCS: 71275; Q9967

== ENCOUNTER 2022-02-24 14:20 | Outpatient (CLI) | payer MEDICARE, SELFPAY ==
--- NOTE | ~2022-02-24 | CT_ITS ---
EXAMINATION: CT abdomen pelvis wo/w con DATE: 02/24/2022 15:08 INDICATION: Hydronephrosis TECHNIQUE: Computed tomography (CT) of the abdomen and pelvis was performed without intravenous contr ast. CT of the abdomen and pelvis was then performed with a total of 130 mL Omnipaque-350 intravenous contrast using a double-bolus technique for simultaneous opacification of the renal parenchyma and r enal collecting system. Automated exposure control and iterative reconstruction technique were employ ed. The dose-length product was 1666.62 mGy-cm. COMPARISON: None FINDINGS: Minimal dependent atelectasis in the bilateral lower lobes. Heart size is normal. No pericardial or p leural effusion. Small sliding-type hiatal hernia. Subcentimeter cyst at the ligamentum teres. Gallbl adder, spleen, pancreas and bilateral adrenal glands are normal. Common bile duct measures up to 6 mm which is within normal limits. 5 mm obstructing distal right ureteral stone approximately 4-5 cephal ad centimeter proximal to the ureterovesicular junction. There is moderate right hydronephrosis with posterior layering contrast within the dilated calyces of the right kidney on postcontrast imaging. 1 mm nonobstructing stone at an upper pole calyx of the left kidney. There are few small peripelvic cy sts at the lower pole of the left kidney. No left-sided hydronephrosis. The proximal half of the left ureter is well opacified with contrast demonstrate no urothelial irregularities. Dependently layerin g contrast seen within the incompletely distended, normal bladder. A few small calcifications at the fundus of the anteverted uterus may be related to degenerated fibroids. Bilateral adnexa are unremark able. Moderate amount of stool scattered throughout the normal colon. No bowel obstruction. No free i ntraperitoneal gas or fluid. No pathologically enlarged abdominal or pelvic lymphadenopathy. Tiny fat -containing umbilical hernia. Mild lumbar spondylosis with 3 mm anterolisthesis L4 on L5 and severe b ilateral lower lumbar facet osteoarthritis. IMPRESSION: 1. Bilateral nephrolithiasis with obstructing 5 mm distal right ureteral stone with moderate right an d hydroureteronephrosis. Reviewed, dictated and finalized at location A. IMPRESSION: 1. Bilateral nephrolithiasis with obstructing 5 mm distal right ureteral stone with moderate right and hydroureteronephrosis.
== END 2022-02-24 14:21 | disposition home or self-care (01) ==
PROVIDERS: PCP Emergency Medicine; Visit Provider Emergency Medicine
DX: N13.30 Unspecified hydronephrosis (principal); N20.0 Calculus of kidney; N20.1 Calculus of ureter
CPT/HCPCS: 74178; Q9967

== ENCOUNTER 2022-03-05 21:27 | Emergency (ER) | payer MEDICARE, SELFPAY ==
--- NOTE | ~2022-03-05 | CT_ITS ---
EXAMINATION: CT abdomen pelvis wo con DATE: 03/06/2022 00:49 INDICATION: Kidney stone. Flank pain. TECHNIQUE: Computed tomography (CT) of the abdomen and pelvis was performed without intravenous contr ast. Automated exposure control and iterative reconstruction technique were employed. The dose-lengt h product was 746.60 mGy-cm. COMPARISON: 02/24/2022 FINDINGS: Minimal atelectasis in the dependent lower lobes. Heart size is normal. No pericardial or pleural eff usion. Liver, gallbladder, spleen, pancreas and bilateral adrenal glands are normal. 1 mm nonobstruct ing stone at an upper pole calyx of the left kidney. Unchanged 7 x 5 mm obstructing stone in the dist al right ureter with moderate right hydroureteronephrosis. Decompressed bladder is unremarkable. Calc ifications in the anteverted uterus which could relate to chronic degenerated uterine fibroid. Bilate ral adnexa are unremarkable. Moderate amount of stool scattered throughout the colon. No dilated marisela l to suggest obstruction. Normal appendix. No free intraperitoneal gas or fluid. No pathologically en larged abdominal or pelvic lymphadenopathy. Mild lumbar spondylosis with 3 mm anterolisthesis L4 on L 5 and severe bilateral lower lumbar facet osteoarthritis. IMPRESSION: 1. Bilateral nephrolithiasis with obstructing 7 x 5 mm distal right ureteral stone with moderate righ t hydroureteronephrosis. Reviewed, dictated and finalized at location A. IMPRESSION: 1. Bilateral nephrolithiasis with obstructing 7 x 5 mm distal right ureteral st one with moderate right hydroureteronephrosis.
[2022-03-05 21:48] VITALS: BP 137/80; PULSE 77; RESP 18; TEMP 36.9; O2SAT 100
[2022-03-05 22:57] LABS: Basophils Absolute Auto 0.1 K/mm3 (0.0-0.1); Eosinophils Absolute Auto 0.3 K/mm3 (0-0.3); Eosinophils Percent Auto 3.9 % (0-4.4); Hematocrit 40.2 % (37.0-47.0); Hemoglobin 14.2 g/dL (12.0-15.0); Immature Granulocyte Absolute 0.03 K/mm3 (0.00-0.031); Immature Granulocyte Percent A 0.4 % (0-0.5); Lymphocytes Percent Auto 32.5 % (18.3-44.2); Mean Corpuscular HGB Conc 35.3 g/dl (32-36); Mean Corpuscular Hemoglobin 28.3 pg (26-34); Mean Corpuscular Volume 80.2 fl (80-100); Mean Platelet Volume 11.1 fl (7.4-10.4); Monocytes Absolute Auto 1.2 K/mm3 (0.1-0.6); Monocytes Percent Auto 14.4 % (2.6-8.5); Neutrophils Absolute Auto 3.8 K/mm3 (1.3-6.7); Neutrophils Percent Auto 47.8 % (45.5-73.1); Platelet Count Result 206 k/mm3 (150-375); Red Blood Count 5.01 M/mm3 (4.2-5.4); Red Cell Distribution Width 13.4 % (11.5-14.5)
[2022-03-05 23:06] LABS: Alanine Aminotransferase 30 U/L (6-35); Albumin Level 4.2 g/dL (3.5-5.1); Alkaline Phosphatase 217 U/L (38-126); Anion Gap 12 mmol/L (8-16); Aspartate Amino Transferase 51 U/L (14-36); Bilirubin,Total 0.4 mg/dL (0.2-1.3); Blood Urea Nitrogen 18 mg/dL (7-17); Calcium 8.9 mg/dL (8.4-10.2); Carbon Dioxide 30 mmol/L (22-30); Chloride 102 mmol/L (98-107); Estimated CRCL calculation 54 ml/min; Estimated Glomerular Filt Rate > 60; Glucose 117 mg/dL (65-110); Sodium 144 mmol/L (137-145)
[2022-03-05 23:12] LABS: Appearance Urine Clear (Clear); Bilirubin Urine Negative (Negative); Blood Urine Negative (Negative); Color Urine Yellow (Yellow); Glucose Urine UA Negative (Negative); Ketones Urine Negative (Negative); Leukocyte Esterase Ur Negative LEU/UL (Negative); Nitrate Urine Negative (Negative); Protein Urine Negative (Negative); Urobilinogen Urine 0.2 mg/dL (<2.0)
[2022-03-05 23:50] LABS: Add Urine Microscopic? NO
--- NOTE | 2022-03-06 00:42 | ED.FEMALEGU ---
HPI - Female Genitourinary General Chief complaint: Urogenital-Female Stated complaint: Kidney stone Time Seen by Provider: 03/06/22 00:30 History of Present Illness HPI Narrative: Patient is a 67-year-old female here for evaluation of left flank pain over the past month that has worsened over the past week. Patient has a history of 5 mm distal kidney stone on the right in addition to bilateral nephrolithiasis, was put on Flomax by her PCP and was told to follow-up with urology. She has an appointment next week. Contacted PCP today regarding her pain and was told to come to the ED for pain control. Patient has not attempted any medications at home. No dysuria, urgency or frequency. No fevers, chills, nausea, vomiting. She does note a soreness in both of her flanks but states her pain is worse on the left. Related Data Home Medications Medication Instructions Recorded Confirmed folic acid 1 mg tablet 1 mg PO DAILY 04/17/20 01/07/22 levothyroxine 125 mcg tablet 125 mcg PO DAILY 04/17/20 01/07/22 black cohosh 40 mg tablet 80 mg PO DAILY 11/20/20 01/07/22 calcium carbonate 600 mg-vitamin 1 tablet PO DAILY 11/20/20 01/07/22 D3 5 mcg (200 unit) tablet nabumetone 500 mg tablet 500 mg PO DAILY 03/20/21 01/07/22 Allergies Allergy/AdvReac Type Severity Reaction Status Date / Time Sulfa (Sulfonamide Allergy Unknown Nausea Verified 03/05/22 21:29 Antibiotics) Review of Systems Review of Systems: Gen: Denies fevers or chills Eyes: Denies eye pain or visual change ENT: Denies congestion Respiratory: Denies shortness of breath or cough CV: Denies chest pain or palpitations GI: Denies abdominal pain nausea, emesis or diarrhea denies burning, urgency, frequency or hematuria Musculoskeletal: Reports bilateral flank pain. Neuro: Denies numbness, tingling, weakness or focal weakness Skin: Denies rash Except as documented, all other systems reviewed and negative PMF Past Medical History Medical History Colon polyp History of vaginal delivery x 3 Hypertension Hypothyroidism Rheumatoid arthritis Surgical History Surgical History History of bunionectomy History of cataract surgery History of exploratory laparotomy History of hammertoe correction History of knee surgery History of total right knee replacement (~11/29/18) History of tubal ligation Family History Family History Father Diabetes mellitus Mother Hyperlipidemia Other Family history of rheumatoid arthritis Social History Social History Smoking status: Never smoker Alcohol intake: never Spiritual care concerns: No Exam Narrative: APPEARANCE: Well appearing, no pain in distress, well-nourished. Head: Normocephalic and atraumatic. EYES: PERRLA/EOMI, conjunctivae clear NOSE: No nasal drainage EARS: External ear normal in appearance THROAT: Oropharynx is clear. Mucous membranes are moist. NECK: Supple. No adenopathy, no masses. RESPIRATORY: Airway patent, respirations nonlabored. Clear to auscultation bilaterally, no rales, rhonchi, wheezing. CARDIOVASCULAR: Regular rate and rhythm without murmurs, rubs, or gallops. ABDOMINAL: Normoactive bowel sounds. Soft, nontender, nondistended. No rebound tenderness or guarding. MUSCULOSKELETAL: No CVA tenderness. Extremities are warm and well-perfused. Moves all extremities well. No edema. NEURO: Normal speech. No focal neurologic deficits. SKIN: No rash over flank. Skin is warm and dry. No rashes. PSYCHIATRIC: Normal affect/mood. Course Vital Signs Vital signs: Vital Signs Temperature 98.4 F 03/05/22 21:48 Pulse Rate 77 03/05/22 21:48 Respiratory Rate 18 03/05/22 21:48 Blood Pressure 137/80 03/05/22 21:48 Pulse Oximetry 1
== END 2022-03-06 02:57 | disposition home or self-care (01) ==
PROVIDERS: Emergency Medicine; Emergency Provider Emergency Medicine; PCP Emergency Medicine
DX: N13.2 Hydronephrosis with renal and ureteral calculous obstruction (principal); I10 Essential (primary) hypertension; E03.9 Hypothyroidism, unspecified; M06.9 Rheumatoid arthritis, unspecified; Z86.010 Personal history of colon polyps; Z98.49 Cataract extraction status, unspecified eye; Z96.651 Presence of right artificial knee joint
CPT/HCPCS: 36415; 74176; 80053; 81003; 85025; 99284; A9270

== ENCOUNTER 2022-03-13 01:43 | Day surgery (SDC) | payer MEDICARE, SELFPAY ==
[2022-03-12 16:41] VITALS: BMI 30.8
--- NOTE | 2022-03-12 16:47 | SUR.PREOP ---
Report to the Outpatient Waiting Room, entrance under the green pavilion located off [facility], at time 1200 on date 03/13/22. OR Time: 1400. Time changes happen often and if your time is changed the preop area will call you the afternoon before. - You and your visitor will be asked to self-screen and do not enter if you have any COVID symptoms. - Only one visitor and NO children visitors are allowed at this time. - The patient visitor is requested to leave or wait in car when not with patient due to restrictions. - A mask is required within the hospital. Patients may have clear liquids (water, carbonated beverages, clear teas, apple juice) until 3 hours prior to surgery with a maximum of 20 ounces. - No food from midnight until time of surgery BEFORE 1100 AM - Infants may have breast milk until 4 hours before surgery, infant formula 6 hours prior to surgery. - Children will be allowed to drink immediately following surgery. If applicable, please bring a bottle or sippy cup to assist with drinking. Juice, water, soda, and popsicles are readily available. For infants on formula, please bring formula the day of surgery. Pacifiers are allowed. Take the following medications with a SIP of water the morning of surgery: Medications to discontinue per physician ___PT WANTS TO HOLD ALL HER MORNING MEDS DUE TO NOT BEING ABLE TO EAT WITH THEM Date to take last dose Please no make-up, nail argentine, hairspray, perfume, deodorant, or body powder the day of surgery. No jewelry (including any body piercings) or valuables the day of surgery, leave them at home. Please take a shower or bath the night before, or the morning of, surgery with an antibacterial soap. Wear comfortable, loose fitting clothing. Children are encouraged to wear pajamas. - Jewelry must be removed prior to entering the operating room. Rings and piercings that are not removed may be cut off. - The hospital will not accept responsibility for valuables. - Please leave all valuables, including medications, at home the day of surgery. If you are going home after surgery, a licensed regional company hazmat tanker driver must drive you home. - NO public transportation without another adult. - We recommend that an adult stay with you for 24 hours following discharge. - We also recommend that you do not drive, make important decision, drink alcoholic beverages, or take any drugs that were not prescribed by your health care provider for at least 24 hours after your discharge time. For Pediatric surgeries, we recommend two adults accompany the child home (only one inside the building at this time). Follow any additional instructions given to you from your surgeon. If you or anyone in your household have experienced Covid symptoms in the past week, please notify your surgeon or the nurse liaison at the phone number below for possible testing. Telephone instructions given to PATIENT and asked if any additional questions and then verbalized understanding. Patient advised to call surgeon office or pre surgery nurse liaison [phone] if any additional questions.
[2022-03-13] VITALS (7 sets, daily range): BP systolic 111–141; BP diastolic 68–85; PULSE 65–73; RESP 12–18; TEMP 36.6–36.9; O2SAT 98–100
--- NOTE | ~2022-03-13 | CT_ITS ---
EXAMINATION: CT abdomen pelvis wo con DATE: 03/13/2022 13:20 INDICATION: Right ureteral stone. Right flank pain. TECHNIQUE: Computed tomography (CT) of the abdomen and pelvis was performed without intravenous contr ast. The dose-length product was 348.12 mGy-cm. Automated exposure control and iterative reconstructi on technique were employed. COMPARISON: CT dated 03/06/2022. FINDINGS: There is dependent atelectasis in the lung bases. Heart size normal. No significant pleural or pericardial effusion. Stable position to 7 x 5 mm distal right ureteral stone with moderate hydro ureteronephrosis. There are nonobstructing left renal stones. No significant vascular abnormality. No lymphadenopathy. The liver, spleen, pancreas, adrenal glands are unremarkable. Gallbladder is present. No free air or free fluid. Mild lumbar spondylosis with gra de 1 spondylolisthesis at L4-5. IMPRESSION: 1. Stable position to 7 x 5 mm distal right ureteral stone with moderate hydronephrosis. 2: Nonobstructing left nephrolithiasis. Reviewed, dictated and finalized at location A. IMPRESSION: 1. Stable position to 7 x 5 mm distal right ureteral stone with moderate hydron ephrosis. 2: Nonobstructing left nephrolithiasis.
--- NOTE | ~2022-03-13 | XR_ITS ---
EXAMINATION: XR retrograde pyelo w/stent RT DATE: 03/13/2022 15:59 INDICATION: Right internal ureteral stent placement TECHNIQUE: Fluoroscopic images from a right internal ureteral stent placement are submitted for ludivina mccarthy 73 seconds of fluoroscopy time. 75 fluoroscopic images FINDINGS: There is a right double-J internal ureteral stent projecting in expected position, with proximal [place] loop at the level of the renal pelvis and distal loop in the pelvis within the bladder lumen. IMPRESSION: 1. Right internal ureteral stent placement. Please refer to real-time procedural findings for anastasiia solorzano. Reviewed, dictated and finalized at location A. IMPRESSION: 1. Right internal ureteral stent placement. Please refer to real-time procedu ral findings for details.
--- NOTE | 2022-03-13 06:27 | WPDHPUPDATE1 ---
History and Physical Update Update Date/Time: 03/13/22 06:27 History and Physical has been reviewed, including an updated exam of the patient. There are NO changes in the patient's condition. Risks, benefits, and alternatives have been discussed and questions answered. Patient agrees to proceed with procedure.
--- NOTE | 2022-03-13 09:05 | WPDANESEPPF ---
Anes - Initial Pre Proc Eval Procedure: Operation Date: 03/13/22 14:00 Proposed Procedures p Cystoscopy, Right Retrograde Pyelogram, Right Ureteroscopy, Right Stone Extraction, Right Stent Placement, Possible Holmium Laser Lithotripsy - Luis Chávez MD Date/Time: 03/13/22 09:05 Surgeon: Luis Chávez MD Pre Op Diagnosis: right ureteral stone Patient Data Age: 67 Gender: F Height: 1.68 m Weight: 86.64 kg Allergies Allergy/AdvReac Type Severity Reaction Status Date / Time Sulfa (Sulfonamide Allergy Mild Nausea Verified 03/13/22 11:55 Antibiotics) Home Medications Medication Instructions Recorded Confirmed Type folic acid 1 mg tablet 1 mg PO DAILY 04/17/20 03/13/22 History levothyroxine 125 mcg tablet 125 mcg PO DAILY 04/17/20 03/12/22 History black cohosh 40 mg tablet 80 mg PO DAILY 11/20/20 03/13/22 History calcium carbonate 600 mg-vitamin 1 tablet PO DAILY 11/20/20 03/13/22 History D3 5 mcg (200 unit) tablet nabumetone 500 mg tablet 500 mg PO DAILY 03/20/21 03/13/22 History hydrocodone 5 mg-acetaminophen 325 1 tablet PO Q8H PRN pain #7 tabs 03/06/22 03/12/22 Rx mg tablet ergocalciferol (vitamin D2) 1,250 50,000 unit PO DAILY 03/12/22 03/13/22 History mcg (50,000 unit) capsule (Vitamin D2) hydrochlorothiazide 25 mg tablet 25 mg PO DAILY 03/12/22 03/13/22 History hydroxychloroquine 200 mg tablet 200 mg PO DAILY 03/12/22 03/13/22 History levothyroxine 125 mcg tablet 125 mcg PO DAILY 03/12/22 03/13/22 History pantoprazole 40 mg tablet,delayed 40 mg PO DAILY 03/12/22 03/13/22 History release spironolactone 50 mg tablet 50 mg PO DAILY 03/12/22 03/13/22 History tamsulosin 0.4 mg capsule 0.4 mg PO DAILY 03/12/22 03/13/22 History Patient hx anesthesia problems: none Family hx anesthesia problems: none Results Review: All pre-operative results and documents have been reviewed as part of the pre-operative evaluation. [facility] Past Medical History Medical History (Updated 03/13/22 @ 09:06 by Mario Cramer MD) Colon polyp History of vaginal delivery x 3 Hypertension Hypothyroidism Nephrolithiasis Rheumatoid arthritis Surgical History Surgical History History of bunionectomy History of cataract surgery History of exploratory laparotomy History of hammertoe correction History of knee surgery History of total right knee replacement (~11/29/18) History of tubal ligation Family History Family History Father Diabetes mellitus Mother Hyperlipidemia Other Family history of rheumatoid arthritis Social History Social History Smoking status: Never smoker Alcohol intake: never Spiritual care concerns: No Anes - Eval Final PreProcedure Day of Procedure 03/13/22 09:05 Patient weight: obese Heart: regular rate and rhythm Lungs: clear to auscultation and normal air movement Airway: Mallampati scale class III Neurological: alert and oriented Last oral intake: >/= 8 hours ASA classification: III Emergent: no Anesthetic plan: proceed Anesthesia type and monitoring: general LMA and standard monitoring Results Review: All pre-operative results and documents have been reviewed as part of the pre-operative evaluation. Informed Consent: The patient's anesthetic plan and its attendant risks and benefits were discussed with the patient/family/POA. Questions were solicited and answers provided to the satisfaction of the patient/family/POA.
--- NOTE | 2022-03-13 11:11 | ECG_ITS ---
Measurements Intervals [place] Rate: 66 P: 45 AK: 167 QRS: -11 QRSD: 89 T: 25 QT: 435 QTc: 456 Interpretive Statements SINUS RHYTHM RSR' IN V1 OR V2, CONSIDER RIGHT VENTRICULAR HYPERTROPHY OR RIGHT VCD VOLTAGE CRITERIA FOR LVH BORDERLINE ECG COMPARED TO ECG 08/26/2021 10:35:09 NO SIGNIFICANT CHANGES Electronically Signed On 03-13-2022 12:54:[address] D[address]
[2022-03-13] MEDS: LACTATED RINGERS 1,000 ML 30 ML IV CONT (12:21)
[2022-03-13 12:25] LABS: Anion Gap 9 mmol/L (8-16); Blood Urea Nitrogen 17 mg/dL (7-17); Carbon Dioxide 29 mmol/L (22-30); Chloride 103 mmol/L (98-107); Estimated CRCL calculation 53 ml/min; Estimated Glomerular Filt Rate > 60; Glucose 81 mg/dL (65-110); Potassium 3.8 mmol/L (3.4-5.0); Sodium 141 mmol/L (137-145)
[2022-03-13] MEDS: MORPHINE SULFATE (*CRX) 2 MG/ML INJ IV PUSH ×3 (12:27→14:58)
--- NOTE | 2022-03-13 13:56 | SUR.PREOP ---
pt informed delay in procedure .
[2022-03-13] MEDS: ceFAZolin 2 GM/D5W 50 ML 2 GM/50 ML BAG IVPB (15:18)
--- NOTE | 2022-03-13 15:56 | W.PM.PROC2 ---
Procedure Note - Detailed Date of Procedure 03/13/22 Pre-op Diagnosis Right ureteral stone Post-op Diagnosis Same Procedure Performed Cystoscopy, right retrograde pyelography, right ureteroscopy with laser lithotripsy, stone extraction and ureteral stent placement Surgeon Luis Chávez MD Description of Procedure Patient is brought to the operative suite where she has prepped draped in routine sterile fashion while in dorsal lithotomy position after the uneventful induction of a general LMA anesthetic. Cystoscopy is undertaken with a 19 F rigid cystoscope. Inside of the bladder was normal without mucosal hyperemia neoplasm or other identifiable pathology. There was no intravesical foreign body. She has a single orthotopic ureteral orifice bilaterally. A 0.035 in glidewire was advanced into her right renal pelvis under fluoroscopy in the distal ureter was dilated with an 8 F 10 F dilator. Ureteroscopy was undertaken with a short tapered semi-rigid ureteral scope. This is a sizable stone in there was considerable edema where the stone was impacted. In light of that I decided to proceed with lithotripsy prior to stone extraction. In a 273 micron holmium laser fiber I fractured the stone into multiple tiny pieces. The largest in only significant residual piece was extracted with a 1.9 F disposable stone basket. Repeat ureteroscopy showed no additional residual fragments. A 4.8 F double-J ureteral stent was positioned with proximal coil in renal pelvis and distal coil in the bladder after obtaining a retrograde pyelogram through the ureteral scope. Patient tolerated the procedure well was taken recovery room good condition. Drains Yes Packing No Pathology Yes Complications No immediate complications Condition Stable Disposition PACU
== END 2022-03-13 17:50 | disposition home or self-care (01) ==
PROVIDERS: Anesthesiology; PCP Emergency Medicine; Visit Provider Urology
PROC: (CPT 52352; principal; 2022-03-13 14:00)
DX: N20.1 Calculus of ureter (principal); I10 Essential (primary) hypertension; E03.9 Hypothyroidism, unspecified; M06.9 Rheumatoid arthritis, unspecified; E66.9 Obesity, unspecified; Z68.30 Body mass index [BMI] 30.0-30.9, adult
CPT/HCPCS: 52356; 36415; 74176; 74420; 80048; 82365; 88300; 93005; A9270; C1769; C1894; C2617; J0690; J1170; J2250; J2270; J2405; J2704; J3010; J7120

== ENCOUNTER 2023-09-08 10:50 | Outpatient (CLI) | payer MEDICARE, SELFPAY ==
[2023-09-08 11:56] LABS: Alanine Aminotransferase 22 U/L (6-35); Aspartate Amino Transferase 58 U/L (14-36)
== END 2023-09-08 10:51 | disposition home or self-care (01) ==
LOC: ANHLAB 10:52
PROVIDERS: PCP Emergency Medicine; Visit Provider Podiatrist Foot & Ankle Surgery
DX: B35.1 Tinea unguium (principal)
CPT/HCPCS: 36415; 84450; 84460

== ENCOUNTER 2023-09-20 12:36 | Outpatient (CLI) | payer MEDICARE, SELFPAY ==
--- NOTE | ~2023-09-20 | DEXA_ITS ---
Bone Density Report Name: JACLYN BLAKELY Age: 68 Sex: Female Ethnicity: Black Date of : 1955 Indication: osteopenia; height loss; history of glucocorticoids; rheumatoid arthritis; Referring Provider: CELINA MCMAHON Study: Bone densitometry was performed. Exam Date: September 20, 2023 Accession number: [id number] Bone Density: Region BMD T-score Z-score Classification AP Spine(L2, L3, L4) 0.644 -4.0 -2.6 Osteoporosis Femoral Neck (Left) 0.618 -2.1 -1.0 Osteopenia Total Hip (Left) 0.660 -2.3 -1.3 Osteopenia Femoral Neck (Right) 0.614 -2.1 -1.0 Osteopenia Total Hip (Right) 0.643 -2.5 -1.4 Osteoporosis Total Hip Mean 0.652 -2.4 -1.4 Osteopenia World Health Organization criteria for BMD impression classify patients as: Normal (T-score at or above -1.0), Osteopenia (T-score between -1.0 and -2.5), or Osteoporosis (T-score at or below -2.5). 10-year Fracture Risk: FRAX not reported because: Some T-score for Spine Total or Hip Total or Femoral Neck at or below -2.5 Previous Exams: Region Exam Age BMD T-score BMD Change BMD Change Date g/cm2 vs Baseline vs Previous AP Spine (L2-L4) 09/20/2023 68 0.644 -4.0 -0.188 (-22.6% -0.188 (-22.6% 05/26/2016 61 0.832 -2.2 Total Hip(Left) 09/20/2023 68 0.660 -2.3 -0.084 (-11.2% -0.040 (-5.7%) 08/02/2020 65 0.700 -2.0 -0.044 (-5.9%) 0.002 (0.2%) 03/31/2019 64 0.699 -2.0 -0.045 (-6.1%) -0.045 (-6.1%) 05/26/2016 61 0.744 -1.6 Total Hip(Right) 09/20/2023 68 0.643 -2.5 -0.089 (-12.1% -0.030 (-4.4%) 08/02/2020 65 0.673 -2.2 -0.059 (-8.0%) 0.029 (4.5%)* 03/31/2019 64 0.643 -2.4 -0.088 (-12.0% -0.088 (-12.0% 05/26/2016 61 0.731 -1.7 *Denotes significance at 95% confidence level, LSC for AP Spine = 0.022 g/cm2, LSC for Total Hip = 0.027 g/cm2 Clinical Information Provided by Patient: Has taken Glucocorticoids Has rheumatoid arthritis Has used the following medications: Calcium Patient maximum height was 67.5 Menopause Age: 49 Does not regularly consume dairy products Onset of menses at age 11 Number of children 3 Impression: The patient has osteoporosis, based on the Total Spine T-score. The patient has risk factors, including: history of glucocorticoid therapy. The BMD for the AP Spine (L2-L4) decreased, changing by -22.6% since the last DXA exam. The BMD for the Total Hip(Left) decreased, changing by -5.7% since the last DXA exam. The BMD for the Total Hip(Ri
== END 2023-09-20 12:37 | disposition home or self-care (01) ==
PROVIDERS: PCP Emergency Medicine; Visit Provider Emergency Medicine
DX: Z78.0 Asymptomatic menopausal state (principal); M81.0 Age-related osteoporosis without current pathological fracture; M85.89 Other specified disorders of bone density and structure, multiple sites
CPT/HCPCS: 77080

== ENCOUNTER 2023-12-01 11:19 | Day surgery (SDC) | payer MEDICARE, SELFPAY ==
[2023-11-26 11:47] VITALS: BMI 28.5
--- NOTE | 2023-12-01 11:41 | P.PNAN_ITS ---
Anes - Eval Pre Procedure Procedure: Operation Date: 12/01/23 13:30 Proposed Procedures p Esophagogastroduodenoscopy - Germán Escalona MD Date/Time: 12/01/23 11:41 Pre Op Diagnosis: Gerd and Dysphagia Patient Data Age: 68 Gender: F Height: 1.7 m Weight: 82.554 kg Allergies Allergy/AdvReac Type Severity Reaction Status Date / Time Sulfa (Sulfonamide Allergy Mild Nausea Verified 11/26/23 14:44 Antibiotics) Home Medications Medication Instructions Recorded Confirmed Type black cohosh 40 mg tablet 80 mg PO DAILY 11/20/20 11/26/23 History calcium carbonate 600 mg-vitamin 1 tablet PO DAILY 11/20/20 11/26/23 History D3 5 mcg (200 unit) tablet ergocalciferol (vitamin D2) 1,250 50,000 unit PO DAILY 03/12/22 11/26/23 History mcg (50,000 unit) capsule (Vitamin D2) hydrochlorothiazide 25 mg tablet 25 mg PO DAILY 03/12/22 11/26/23 History hydroxychloroquine 200 mg tablet 200 mg PO DAILY 03/12/22 11/26/23 History levothyroxine 125 mcg tablet 125 mcg PO DAILY 03/12/22 11/26/23 History pantoprazole 40 mg tablet,delayed 40 mg PO DAILY 03/12/22 11/26/23 History release spironolactone 50 mg tablet 50 mg PO DAILY 03/12/22 11/26/23 History nabumetone 500 mg tablet 500 mg PO DIRECTED 11/26/23 11/26/23 History terbinafine HCl 250 mg tablet 250 mg PO DIRECTED 11/26/23 11/26/23 History Patient hx anesthesia problems: none Family hx anesthesia problems: none Results Review: All pre-operative results and documents have been reviewed as part of the pre- operative evaluation. [facility] Past Medical History Medical History Colon polyp History of vaginal delivery x 3 Hypertension Hypothyroidism Nephrolithiasis Rheumatoid arthritis Surgical History Surgical History History of bunionectomy History of cataract surgery History of exploratory laparotomy History of hammertoe correction History of knee surgery History of removal of calculus of renal pelvis through percutaneous nephrostomy History of total right knee replacement (~11/29/18) History of tubal ligation Family History Family History Father Diabetes mellitus Mother Hyperlipidemia Other Family history of rheumatoid arthritis Social History Social History Smoking status: Never smoker Alcohol intake: never Substance use: never Substance use type: does not use Lack of Transportation: No Lack of Food: Sometimes True Current Housing: I Have Housing Concerned About Future Housing: No Difficulty Paying Gas/Electric Bills: No Difficulty Paying for Meds: No Currently Unemployed: YES Education: Decline to Answer Difficulty w/ Childcare or Family Care: No Living arrangements: with family Occupation/Education: retired Gender identity (if verbalized by the patient): Female Sexual Orientation (if Verbalized by the Patient): Straight or Heterosexual Spiritual care concerns: No Exam Day of Procedure 12/01/23 11:41 Patient weight: overweight
[2023-12-01 12:49] VITALS: BP 135/89; PULSE 72; RESP 20; TEMP 36.4; O2SAT 100; BMI 28.4
[2023-12-01] MEDS: LACTATED RINGERS 1,000 ML 150 ML IV CONT (13:01)
--- NOTE | 2023-12-01 13:07 | P.PNAN_ITS ---
Anes - Eval Final PreProcedure Day of Procedure 12/01/23 13:07 Patient weight: overweight Heart: regular rate and rhythm Lungs: clear to auscultation Airway: Mallampati scale class III Neurological: alert and oriented Last oral intake: >/= 8 hours ASA classification: III Emergent: no Anesthetic plan: proceed Anesthesia type and monitoring: general GIVS and standard monitoring Results Review: All pre-operative results and documents have been reviewed as part of the pre- operative evaluation. Informed Consent: The patient's anesthetic plan and its attendant risks and benefits were discussed with the patient/family/POA. Questions were solicited and answers provided to the satisfaction of the patient/family/POA.
--- NOTE | 2023-12-01 13:31 | PM.HPGS ---
History of Present Illness History of Present Illness Consent: Risks, benefits, and alternatives have been discussed and questions answered. Patient agrees to proceed with procedure. Chief complaint: Gerd and Dysphagia Narrative: Leisa Lowe is a 68 year old female presents on patient reports a long history of acid reflux. States that when she eats rice that often will catch in her throat. States this symptom is not been present recently. She was placed on pantoprazole. Since being placed on pantoprazole her symptoms have improved dramatically she has occasional heartburn. Dysphagia is improving. She denies any weight loss or bleeding. Patient referred for EGD because of symptoms of ongoing GE reflux disease. Review of Systems Review of Systems: All systems reviewed & are unremarkable except as noted in HPI and below PMFSH Past Medical History Medical History Colon polyp History of vaginal delivery x 3 Hypertension Hypothyroidism Nephrolithiasis Rheumatoid arthritis Surgical History Surgical History History of bunionectomy History of cataract surgery History of exploratory laparotomy History of hammertoe correction History of knee surgery History of removal of calculus of renal pelvis through percutaneous nephrostomy History of total right knee replacement (~11/29/18) History of tubal ligation Family History Family History Father Diabetes mellitus Mother Hyperlipidemia Other Family history of rheumatoid arthritis Social History Social History Smoking status: Never smoker Alcohol intake: never Substance use: never Substance use type: does not use Lack of Transportation: No Lack of Food: Sometimes True Current Housing: I Have Housing Concerned About Future Housing: No Difficulty Paying Gas/Electric Bills: No Difficulty Paying for Meds: No Currently Unemployed: YES Education: Decline to Answer Difficulty w/ Childcare or Family Care: No Living arrangements: with family Occupation/Education: retired Gender identity (if verbalized by the patient): Female Sexual Orientation (if Verbalized by the Patient): Straight or Heterosexual Spiritual care concerns: No Meds Home Medications and Allergies Home Medications Medication Instructions Recorded Confirmed Type black cohosh 40 mg tablet 80 mg PO DAILY 11/20/20 12/01/23 History calcium carbonate 600 mg-vitamin 1 tablet PO DAILY 11/20/20 12/01/23 History D3 5 mcg (200 unit) tablet ergocalciferol (vitamin D2) 1,250 50,000 unit PO DAILY 03/12/22 12/01/23 History mcg (50,000 unit) capsule (Vitamin D2) hydrochlorothiazide 25 mg tablet 25 mg PO DAILY 03/12/22 12/01/23 History hydroxychloroquine 200 mg tablet 200 mg PO DAILY 03/12/22 12/01/23 History levothyroxine 125 mcg tablet 125 mcg PO DAILY 03/12/22 12/01/23 History pantoprazole 40 mg tablet,delayed 40 mg PO DAILY 03/12/22 12/01/23 History release spironolactone 50 mg tablet 50 mg PO DAILY 03/12/22 12/01/23 History nabumetone 500 mg tablet 500 mg PO DIRECTED 11/26/23 12/01/23 History terbinafine HCl 250 mg tablet 250 mg PO DIRECTED 11/26/23 12/01/23 History Allergies Allergy/AdvReac Type Severity Reaction Status Date / Time Sulfa (Sulfonamide Allergy Mild Nausea Verified 12/01/23 12:47 Antibiotics) Vital Signs Vital Signs - 24 hr 12/01/23 12:49 Temperature 97.6 F Pulse Rate 72 Respiratory Rate 20 Blood Pressure 135/89 Pulse Oximetry 100 Oxygen Delivery Room Air Exam Narrative: Physical exam reveals patient to be. Vital signs stable. Exam is unremarkable. Patient is anicteric. Lungs are clear to auscultation and to percussion. Heart is without murmur or extra sounds.
[2023-12-01 13:54] VITALS: BP 123/81; PULSE 77; RESP 16; O2SAT 100
--- NOTE | 2023-12-01 14:01 | WPDANESPN ---
Anes - Prog Note Post-Op Date/Time: 12/01/23 14:01 Cardiovascular status: normal Respiratory status: normal Airway patency: baseline Mental status: baseline Post-Op hydration status: normal Vital Signs: Last Vital Signs Temp 36.4 C 12/01/23 12:49 Pulse 77 12/01/23 13:54 Resp 16 12/01/23 13:54 BP 123/81 12/01/23 13:54 Pulse Ox 100 12/01/23 13:54 O2 Del Method Room Air 12/01/23 13:54 Pain Score (VAS): 0/10 I/O: Intake & Output 11/30/23 12/01/23 12/01/23 23:59 07:59 15:59 Intake Total 100 Balance 100 Patient Feedback: Patient satisfied with anesthetic care.
[2023-12-01 14:04] VITALS: BP 132/81; PULSE 72; RESP 18; O2SAT 100
[2023-12-01 14:14] VITALS: BP 133/84; PULSE 72; RESP 16; O2SAT 99
== END 2023-12-01 14:18 | disposition home or self-care (01) ==
PROVIDERS: PCP Emergency Medicine; Visit Provider Internal Medicine Gastroenterology
PROC: 0DJ08ZZ Inspection of Upper Intestinal Tract, Via Natural or Artificial Opening Endoscopic (ICD-10-PCS; CPT 43235; principal; 2023-12-01 13:30)
DX: R13.19 Other dysphagia (principal); K21.9 Gastro-esophageal reflux disease without esophagitis
CPT/HCPCS: 43450

== ENCOUNTER 2023-12-01 16:05 | Emergency (ER) | payer OTHER, MEDICARE, SELFPAY ==
--- NOTE | 2023-12-01 16:13 | ED.SKABFB ---
HPI - Skin/Abscess/Foreign Bdy General Chief complaint: Skin/Abscess/Foreign Body Stated complaint: L ARM BURN Time Seen by Provider: 12/01/23 16:09 Source: patient Mode of arrival: ambulatory Limitations: no limitations History of Present Illness HPI narrative: Patient is a 60-year-old female who presents with burn to left forearm. Patient was taking pain out of oven yesterday at work and has to lines each 5 cm in length. Denies any pain, blisters, drainage from wounds. Related Data Home Medications Medication Instructions Recorded Confirmed black cohosh 40 mg tablet 80 mg PO DAILY 11/20/20 12/01/23 calcium carbonate 600 mg-vitamin 1 tablet PO DAILY 11/20/20 12/01/23 D3 5 mcg (200 unit) tablet ergocalciferol (vitamin D2) 1,250 50,000 unit PO DAILY 03/12/22 12/01/23 mcg (50,000 unit) capsule (Vitamin D2) hydrochlorothiazide 25 mg tablet 25 mg PO DAILY 03/12/22 12/01/23 hydroxychloroquine 200 mg tablet 200 mg PO DAILY 03/12/22 12/01/23 levothyroxine 125 mcg tablet 125 mcg PO DAILY 03/12/22 12/01/23 pantoprazole 40 mg tablet,delayed 40 mg PO DAILY 03/12/22 12/01/23 release spironolactone 50 mg tablet 50 mg PO DAILY 03/12/22 12/01/23 nabumetone 500 mg tablet 500 mg PO DIRECTED 11/26/23 12/01/23 terbinafine HCl 250 mg tablet 250 mg PO DIRECTED 11/26/23 12/01/23 Allergies Allergy/AdvReac Type Severity Reaction Status Date / Time Sulfa (Sulfonamide Allergy Mild Nausea Verified 12/01/23 12:47 Antibiotics) Review of Systems Review of Systems: All systems reviewed & are unremarkable except as noted in HPI and below Constitutional: Constitutional: Denies body ache(s), Denies chills, Denies fatigue, Denies fever(s), Denies headache(s), Denies malaise and Denies weakness Eyes: Eyes: Denies blurry vision, Denies irritation and Denies loss of vision ENT: Denies otalgia, Denies headache(s), Denies nasal discharge, Denies sinus pain and Denies sore throat Cardiovascular: Cardiovascular: Denies chest pain, Denies irregular heart rhythm and Denies dyspnea Respiratory: Respiratory: Denies dyspnea Gastrointestinal: Gastrointestinal: Denies abdominal pain, Denies melena, Denies hematochezia, Denies diarrhea, Denies nausea and Denies vomiting Musculoskeletal: Musculoskeletal: Denies back pain, Denies myalgias and Denies arthralgias Integumentary/Breasts: Skin/Breast: Denies pruritus, Denies rash and Reports skin pain Neurologic: Denies headache(s), Denies loss of vision and Denies weakness Psychiatric: Psychiatric: Reports no additional psychiatric complaints Endocrine: Endocrine: Denies fatigue PMFSH Past Medical History Medical History Colon polyp History of vaginal delivery x 3 Hypertension Hypothyroidism Nephrolithiasis Rheumatoid arthritis Surgical History Surgical History History of bunionectomy History of cataract surgery History of exploratory laparotomy History of hammertoe correction History of knee surgery History of removal of calculus of renal pelvis through percutaneous nephrostomy History of total right knee replacement (~11/29/18) History of tubal ligation Family History Family History Father Diabetes mellitus Mother Hyperlipidemia Other Family history of rheumatoid arthritis Social History Social History Smoking status: Never smoker Alcohol intake: never Substance use: never Substance use type: does not use Lack of Transportation: No Lack of Food: Sometimes True Current Housing: I Have Housing Concerned About Future Housing: No Difficulty Paying Gas/Electric Bills: No Difficulty Paying for Meds: No Currently Unemployed: YES Education: Decline to Answer Difficulty w/ Childcare or Family Care: No Liza
[2023-12-01 16:19] VITALS: BP 146/79; PULSE 88; RESP 16; TEMP 36.2; O2SAT 98
== END 2023-12-01 16:54 | disposition home or self-care (01) ==
PROVIDERS: Emergency Provider Nurse Practitioner Family; PCP Emergency Medicine
DX: T22.212A Burn of second degree of left forearm, initial encounter (principal); X15.0XXA Contact with hot stove (kitchen), initial encounter; Y99.0 Civilian activity done for income or pay; I10 Essential (primary) hypertension; E03.9 Hypothyroidism, unspecified; M06.9 Rheumatoid arthritis, unspecified; Z96.651 Presence of right artificial knee joint
CPT/HCPCS: 99213; G0463

== ENCOUNTER 2024-07-03 07:53 | Outpatient (CLI) | payer MEDICARE, SELFPAY ==
[2024-07-03 09:37] LABS: Vitamin D 25 Hydroxy 74.7 ng/mL
== END 2024-07-03 07:54 | disposition home or self-care (01) ==
PROVIDERS: PCP Emergency Medicine; Visit Provider Internal Medicine Rheumatology
DX: E55.9 Vitamin D deficiency, unspecified (principal)
CPT/HCPCS: 36415; 82306

== ENCOUNTER 2024-11-27 13:08 | Outpatient (CLI) | payer MEDICARE, SELFPAY ==
[2024-11-27 14:20] LABS: Anion Gap 6 mmol/L (4-12); Blood Urea Nitrogen 15 mg/dL (7-17); Calcium 9.9 mg/dL (8.4-10.2); Carbon Dioxide 31 mmol/L (22-30); Chloride 102 mmol/L (98-107); Estimated Glomerular Filt Rate 60; Glucose 81 mg/dL (65-110); Magnesium 2.1 mg/dL (1.6-2.3); Phosphorus 3.3 mg/dL (2.5-4.5); Sodium 139 mmol/L (137-145)
--- OUTSIDE RECORDS SUMMARY | 2024-11-27 14:23 | XMS_ITS | CONTINUITY OF CARE DOCUMENT ---
Author Name chana zayas Address Unknown Organization [facility] Address [address] [place] [address] Phone [phone] Care Team Providers Care Candy Separator Hard Name Role Phone Glen Mata MD Unavailable [phone] [employer] Payer name Policy type / Coverage type [employer] red republic[employer] ID [facility] [id number]
--- OUTSIDE RECORDS SUMMARY | 2024-11-27 14:23 | XMS_ITS | Data Portability ---
Author Organization [facility], [address] Neurology ([place]) Address [address] 4[address] [place] [address] Care Team Providers Care Link Trainer Name Role Phone CELINA MCMAHON Primary Care Provider Assessment Encounter Date Assessment Date Assessment LastModified by Organization Details LastModified Time 05/04/2024 05/04/2024 IMPRESSION: 1. Seropositive RA, currently well controlled. 2. Osteoporosis, currently tolerating Reclast antiresorptive therapy. 3. Osteoarthritis. 4. Hypovitaminosis D. PLAN: 1. DMARD labs and serum magnesium phosphorus and vitamin D level today. 2. We will obtain a copy of her ophthalmology notes from Dr. Megan Mcduffie or [facility] in [place], [place], and Dr. Dinero s notes from [facility]. 3. Continue current hydroxychloroquine and nabumetone therapy. 4. The patient will follow up in 6 months though will have repeat DMARD labs in 4 months prior to then. ele [email or web address] Not available 05/05/2024 11:54:55 Plan of Treatment Reminders Order Date Submit Date Provider Last Modified By Organization Details Last Modified Time Details Appointments None recorded. Lab None recorded. Referral None recorded. Procedures None recorded. Surgeries None recorded. Imaging None recorded. Medication Orders zoledronic acid 4 mg/100 mL in mannitol 5 %-water intravenous piggybck 2023 024 stephanie [facility], [address] [facility], [place], [address], 09:56:37 Patient TargetsNo targets recorded. Patient InstructionsNo instructions recorded. Reason for Referral None Reported. Results Created Date Observation Date Name Description Value Unit Range Abnormal Flag Note LastModifiedBy Organization Detail LastModifiedTime 12/22/19 24 09/20/2023 bone densi ty No observ ation record ed. BARCODE Not Available 2023 09:49:30 Result Notes None recorded. Problems Name Problem SNOMED Code Status Onset Date Resolution Date Notes Provider Name and Address Organization Details Recorded Time Osteoarthritis 714531287 Active 2023 Mayte Booth [facility] 5 14:27:59 Seropositive rheumatoid arthritis 627228382 [facility] 4 17:41:14 Osteoporosis 37376920 Active 2023 [facility] 4 13:14:30 Vitamin D deficiency 43665164 Active 2023 [facility] 4 13:16:22 Notes:Some problems listed i n Document: #[id number] could not be added to this patient's chart. Please review this document and add these problems to the patient's chart manually as needed. Problem Notes None recorded. Procedures Surgical History Date Name Laterality Status Provider Name and Address Organization Details Recorded Time 12/20/19 24 SC 800 Infusion Record-Rheum completed Conchita Phillips [facility] 12/20/2023 09:43:43 Total knee arthroplasty completed Not Available Health Note 04/27/2024 15:44:08 Imaging Results None recorded. Procedure Notes None recorded. Medical Equipment None Reported. Allergies Allergen ID Allergen Name Allergen Category Reaction Reaction Severity Criticality Documentation Date Start Date Code Code System Note Provider Name and Address Organization Details Recorded Time 6592234 Substance with sulfonami de structure and antibacte rial mechanism of action (substanc e) medicatio n headache Not available Not available 07/21/20232017 54887 8003 SNOMED React ion: Heada david; Nause a; Vomit ing; Not Available [facility] 4 04:16:40 Medications Name Sig Start Date Stop Date Status Note LastModified by Organization Details LastModified Time nystatin 100,000 unit/mL oral suspensio n SWISH, RINSE MOUTH, AND SPIT 5ML BY MOUTH EVERY 6 HOURS FOR 7 DAYS active Not Available Not Available No t Available prednison e 10 mg tablet Take 2 tablets once daily for 4 days, then take 1 tablets daily for 3 days. OFF 05/04 completed Not Available Not Available Not Available oxybutyni n chloride ER 10 mg tablet,ex tended release 24 hr TAKE 1 TABLET BY MOUTH ONCE DAILY active Not Available Not Available No t Available famotidin e 40 mg tablet TAKE 1 TABLET BY MOUTH ONCE DAILY 05/04 completed Not Available Not Available Not Available Tylenol Arthritis Pain 650 mg tablet,ex tended release Take 2 tablets every 8 hours by oral route as needed. active Not Available Not Available No t Available Space Chamber USE WITH ALBUTERO L INHALER DIRECTED active Not Available Not Available No t Available levofloxa ramírez 250 mg tablet TAKE 1 TABLET BY MOUTH ONCE DAILY active Not Available Not Available No t Available terbinafi ne HCl 250 mg tablet TAKE 1 TABLET BY MOUTH ONCE DAILY 05/04 completed Not Available Not Available Not Available pantopraz ole 40 mg tablet,de layed release TAKE 1 TABLET BY MOUTH ONCE DAILY NEEDED active Not Available Not Available No t Available levothyro xine 125 mcg tablet TAKE 1 TABLET BY MOUTH ONCE DAILY active Not Available Not Available No t Available oxybutyni n chloride ER 5 mg tablet,ex tended release 24 hr TAKE 1 TABLET BY MOUTH ONCE DAILY active Not Available Not Available No t Available hydrochlo rothiazid e 25 mg tablet TAKE 1 TABLET BY MOUTH ONCE DAILY active Not Available Not Available No t Available ergocalci ferol (vitamin D2) 1,250 mcg (50,000 unit) capsule TAKE 1 CAPSULE BY MOUTH ONCE A WEEK 05/04 completed Not Available Not Available Not Available hydroxych loroquine 200 mg tablet Take 1 tablet twice a day by oral route. active Not Available Not Available No t Available albuterol sulfate HFA 90 mcg/actua tion aerosol inhaler INHALE 1 PUFF BY MOUTH EVERY 4 TO 6 HOURS NEEDED FOR SHORTNES S OF BREATH active Not Available Not Available No t Available SSD 1 % topical cream 05/04 completed Not Available Not Available Not Available SF 5000 Plus 1.1 % dental cream USE DIRECTED 05/04 completed Not Available Not Available Not Available spironola ctone 50 mg tablet TAKE 1 TABLET BY MOUTH ONCE DAILY active Not Available Not Available No t Available nabumeton e 500 mg tablet Take 1 tablet twice a day by oral route with meal(s). 08/15 completed Not Available Not Available Not Available cholecalc iferol (vitamin D3) 1,250 mcg (50,000 unit) capsule TAKE 1 CAPSULE BY MOUTH EVERY TWO WEEKS 10/11 completed stopped 10/11/24 after review of labs by physicia n Not Available Not Available Not Available zoledroni c acid 4 mg/100 mL in mannitol 5 %-water intraveno us piggybck infuse 5 mg IV over 30 minutes 2023 active Not Available Not Available Not Avai lable PreviDent 5000 Booster Plus 1.1 % dental paste 05/04 completed Not Available Not Available Not Available Vitals Date Recorded Body weight Heart rate Oxygen saturation Oxygen saturation in Arterial blood by Pulse oximetry Systolic blood pressure Diastolic blood pressure Provider Name and Address Organization Details Last Updated DateTime 4 48386.0 4 g 74 /min 95 % 95 % 142 mm[Hg] 86 mm[Hg] Maura Hill [facility] 4 09:28:18 Social History Question Answer Notes LastModified by [employer] Details LastModified Time Tobacco Smoking Status Never Smoker Not Available Health Note 04/27/2024 15:44:08 Do You Have An Advance Directive? No [email or web address] Information not available 04/27/2024 What Is Your Level Of Caffeine Consumption? None [email or web address] Information not available 04/27/2024 How Many Times Per Week Do You Exercise? 1-2 Times Per Week [email or web address] Information not available 04/27/2024 What Was The Date Of Your Most Recent Tobacco Screening? 05/04/2024 [email or web address] Information not available 04/27/2024 What Is Your Relationship Status? [email or web address] Information not available 04/27/2024 Sex: Unknown Functional Status Question Answer Note LastModified by [employer] Details LastModified Time Do you use any illicit or recreational drugs? No [email or web address] Information not available 04/27/2024 What is your level of alcohol consumption? None [email or web address] Information not available 04/27/2024 Are you currently employed? 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 Occasional [email or web address] Information not available 04/27/2024 Mental Status None recorded. Family History Relationship Description Onset Age of this Age Resolved Age Notes LastModified by Organization Details LastModified Time Father Diabetes mellitus [email or web address] Not available 2023 15:44:06 Mother Disorder of thyroid gland [email or web address] Not available 2023 15:44:06 Medical History Condition Response Diabetes N Anxiety Disorder N Bleeding Disorder N Attention-deficit Hyperactivity Disorder N High Blood Pressure N Arthritis N Hyperlipidemia N Cancer N Thyroid Problems N Stroke N Asthma N COPD N Depression N Anemia N Seizures N Heart Disease N Fibromyalgia N Osteoporosis N Kidney Disease N Gynecological HistoryNo gynecological history recorded. Obstetrics History GPAL:G 0 P 0 0 0 0 Past Encounters Encounter ID Performer Location Encounter Start Date Encounter Closed Date Diagnosis/Indication Diagnosis SNOMED-CT Code Diagnosis ICD10 Code Diagnosis Note [id number] Genaro Healy MD [address] [place] [address] Infusion ([place]) [address] [place] [phone] 12/20/2023 08:44:32 12/20/2023 10:12:09 Osteoporosis 08301926 M81.0 [id number] Genaro Healy MD [facility] Rheumatol ogy ([place]) [address] [place] [address] 05/04/2024 09:19:05 05/08/2024 04:11:28 Seropositive rheumatoid arthritis 648745203 M05.9 Vitamin D deficiency 347 18295 E55.9 Osteoporosis 64061175 M8 1.0 Osteoarthritis 570579993 M15.0 Health Concerns Section Related Observation LastModified by Organization Detai ls LastModified Time None Recorded Concern Status LastModified by Organization Details LastModified Time None Recorded Advance Directives Directive N: Payers Insurance Date Sequence Insurance Name Policy Number Policy Mcconnell Covered Member ID Mcconnell Member ID Guarantor Name 07/03/2024 1 [facility] (MEDICARE REPLACEMENT/A DVANTAGE - HMO) [id number] Leisa Lowe [id number] Leisa Lowe Notes Date Note Type Note Provider Name and Address Organization Details Recorded Time 4 text/html The patient is a 69-year-old female with seropositive RA, osteoarthritis, osteoporosis, and vitamin D deficiency, who is here for a followup visit today. She continues on Plaquenil 200 mg daily along with her nabumetone. She has taken 1 dose of the Reclast so far. She reports she tolerated the dose without postdosing headache, fever or chills, abdominal or back pain. She has had no dental issues. No falls or fractures. The patient currently does see Ophthalmology at least once every 6 months. There have been no issues with Plaquenil retinopathy. The patient states overall her joints are doing well on the current combination therapy. No joint pain. Her morning stiffness is lasting 10 minutes or less in duration. She has had no fever or chills, skin rash, Raynaud s symptoms, inflammatory eye symptoms, aphthous ulcers, sicca symptoms, neck swelling, lymph node swelling, cough, pleurisy, shortness of breath, chest pain or palpitations, GERD, melena or hematochezia, diarrhea or constipation, anorexia or early satiety.ele Leisa Vincent a 69 year oldfemalepresenting for care. Genaro Healy MD [address] [place] [address], [phone], [place] [facility] 05/11/2024 21:50:37 OBGyn Episode No OBEpisode recorded.
--- OUTSIDE RECORDS SUMMARY | 2024-11-27 14:24 | XMS_ITS | Clinical Summary ---
Author Organization [facility] Address [address] [facility] [place] [address] Care Team Providers Care Business Analytics Manager Name Role Phone Alex Bauer MD Primary Care Provider Allergies Active Allergy Reactions Criticality Noted Date Comments Sulfa (Sulfonamide Antibiotics) Headache Low 08/19 Medications traMADoL (ULTRAM) 50 mg tablet every 6 hours 9 Active spironolactone (ALDACTONE) 50 mg tablet Take 50 mg by mouth daily [address] (PROTONIX) 40 mg EC tablet Take 40 mg by mouth daily 2 Active naproxen (NAPROSYN) 375 mg tablet 2 times daily Active nabumetone (RELAFEN) 500 mg tablet 2 Active methotrexate 25 mg/mL injection solution INJECT 0.8 ML(S) SUBCUTANEOUSLY ONCE A WEEK. 4 Active meloxicam (MOBIC) 15 mg tablet daily 6 Active levothyroxine (SYNTHROID) 125 mcg tablet Take 125 mcg by mouth daily before breakfast Active hydrOXYchloroQ UINE (PLAQUENIL) 200 mg tablet 2 Active hydroCHLOROthi azide (HYDRODIURIL) 25 mg tablet daily 4 Active folic acid (FOLVITE) 1 mg tablet daily 3 Active diclofenac sodium (VOLTAREN) 1 % gel Place on the skin 4 Active cholecalcifero l (VITAMIN D-3) 2000 unit capsule TAKE ONE TABLET PO DAILY 4 Active black cohosh root extract 160 mg capsule Activ e alendronate (FOSAMAX) 35 mg tablet 1 tablet on Wednesdays Active acetaminophen ER (TYLENOL) 650 mg 8 hr tablet Take 650 mg by mouth every 8 (eight) hours as needed 9 Active Active Problems Problem Noted Date Diagnosed Date Venous insufficiency 02/18/2022 Assessment & Plan (02/18/2022 2:09 PM CDT): Bilateral lower extremity lipodermatosclerosis with mild edema, no varicosities. I have recommended compression therapy. She has compression therapy is with her, she can follow-up p.r.n.. BMI 28.0-28.9,adult 05/05/2017 Osteoporosis 05/14/2014 High risk medication use 11/18/2012 Hypothyroidism 05/26/2011 Hyperparathyroidism 05/26/2011 Encounter for preventive health examination 03/23 DJD (degenerative joint disease) 09/05/2008 Essential hypertension 09/05/2008 Overview (02/18/2022): Assessment & Plan (02/18/2022 2:10 PM CDT): aldactone Knee pain 09/05/2008 Overview (02/18/2022): 10/04/2008 cortisone shot right knee good response in Dec Flared again in last three days. Rheumatoid arthritis 02/19/2007 Overview (02/18/2022): 05/27 polyarthritis feet primaarily, RF 1000, esr crp wnl, hepsa and hepc negative HAnd Xray neg MRI foot showed RA changes. Rapid3= 20 MTX started 07/29 Rapid3= 14, PPD negative 10/04/2008 MTX well tolerated, Rapid3= 7.3 Encounters Date Type Department Care Team Description 10/28/2024 12:37 PM CDT - 10/28/2024 11:59 PM CDT Hospital Encounter [facility] [address] [place] [address] Screening mammogram, encounter for Discharge Disposition: Discharge to home or self care from Last 3 Months Medical History Medical History Date Comments Arthritis Family History Medical History Relation Name Comments Rheum arthritis Mother Family histo ry of rheumatoid arthritis - (Added by TW Conv) Breast cancer Neg Hx Ovarian cancer Neg Hx Relation Name Status Comments Mother Social History Tobacco Use Types Packs/Day Years Used Date Smoking Tobacco: Never Comments No Sex and Gender Information Value Date Recorded Sex Assigned at Not on file Legal Sex Female 9:14 AM WALL TAPER Gender Identity Not on file Sexual Orientation Not on file Obstetrics History Para Term AB IAB SAB Ectopic Multiple Livin g Live Births 4 3 3 Date Outcome GA Total Labor Labor//3rd Weight Sex Type Anes PTL Cydney A1 A5 Name Clin Term Term Term Last Filed Vital Signs Vital Sign Reading Time Taken Comments Blood Pressure 131/66 02/18/2022 10:55 AM CDT Pulse 76 02/18/2022 10:55 AM CDT Temperature - - Respiratory Rate - - Oxygen Saturation 93% 05/05/2017 11:11 AM WALL TAPER Inhaled Oxygen Concentration - - Weight 83.9 kg (185 lb) 10/28/2024 12:50 PM CDT Height 165.1 cm (5' 5) 10/28/2024 12:50 PM CDT Body Mass Index 30.79 10/28/2024 12:50 PM CDT Plan of Treatment Health Maintenance Due Date Last Done Comments Depression Screening 1955 Fall Risk Assessment 1955 Hepatitis C Screening 1955 Osteoporosis Screening-Bone Density Scan 1955 DTaP/Tdap/Td Vaccine (1 - Tdap) 1966 Hepatitis B Screening 1973 Zoster Vaccine (1 of 2) 05/06/2015 03/11/2015 Well Visit 65+ 01/07/2020 Colon Cancer Screening-Colonoscopy 07/12/2022 07/12/2012 Covid-19 Vaccine (5 2023-2 5 season) 2024 10/30/2021, 04/19/2021, 08/21/2020, Additional history exists Influenza Vaccine (Season Ended) 2025 04/19/20 21, 03/11/2015 Breast Cancer Screening-Mammogram 10/28/2025 025 Colon Cancer Screening-CT Colonography Discontinued 07/12/2012 Colon Cancer Screening-DNA Stool Discontinued 07/12/19 13 Colon Cancer Screening-FIT Discontinued 07/12/2012 Colon Cancer Screening-Sigmoidoscopy Discontinued 07/12/2012 Pneumococcal vaccine 65+ Completed 021, 04/20/2020, 08/08/2013 Procedures Procedure Name Priority Date/Time Associated Diagnosis Comments SCREENING MAMMOGRAM BILATERAL W MORGAN Schedule Routine, Read Routine (OP Routine) 10/28/2024 12:58 PM CDT Screening mammogram, encounter for COLONOSCOPY REPORT 07/12/2012 from Last 3 Months or Most Recently Relevant to Health Maintenance Results * Screening Mammogram Bilateral W Morgan (10/28/2024 12:58 PM CDT) Anatomical Region Laterality Modality Breast Bilateral Mammography Impressions 10/30/2024 11:36 AM CDT Bilateral No evidence of malignancy in either breast. OVERALL BI-RADS FINAL ASSESSMENT: 1 - Negative RECOMMENDATION: Recommend bilateral annual screening mammography. Narrative 10/30/2024 11:36 AM CDT EXAMINATION: Screening Mammogram Bilateral W Morgan: 10/28/2024 COMPARISON: Relevant prior studies available at the time of interpretation were reviewed. TECHNIQUE: Mammography was performed with 2D and digital breast tomosynthesis (DBT) images. CAD was utilized. BREAST PARENCHYMAL COMPOSITION: There are scattered areas of fibroglandular density. FINDINGS: Bilateral There is no suspicious mass, calcification, or architectural distortion in either breast. us Self Screening Mammogram IMG MAMMO PROCEDURES Fi nal Result * COLONOSCOPY REPORT (07/12/2012) Anatomical Region Laterality Modality Other Narrative 07/12/2012 Ordered by an unspecified provider. us Historical Provider GI PROCEDURE ORDERABLES F inal Result from Last 3 Months or Most Recently Relevant to Health Maintenance Insurance [facility] Address: [address] [place] [phone] [facility] Address: [facility] [address] [place] [address] [facility] Address: [address] [address] [place] [address] Care Teams Business Analytics Manager Relationship Specialty Start Date End Date Alex Bauer MD [address] [facility] [address] [place] [id number] PCP - General Family Medicine 06/28/24
--- OUTSIDE RECORDS SUMMARY | 2024-11-27 14:24 | XMS_ITS | Clinical Summary ---
Author Organization [facility] Address [address] [place] [address] Care Team Providers Care Women'S Basketball Coach Name Role Phone Unavailable Primary Care Provider Unavailabl e Source Comments [facility],non-owned Affiliates and Associated Physician Practices is amultiple site organization consisting of ambulatory clinics and hospital sitesin [place], [place], [place] and [place]. This disclosure is being madepursuant to the Care Everywhere program and may not contain all information available regarding this patient. Last updated 18.[facility] Allergies Active Allergy Reactions Criticality Noted Date Comments Sulfa Drugs 09/05/2008 Medications * Be aware that medications may not be up to date on this document. Alwaysverify current medications with the patient. SYNTHROID 150 MCG TABS Take 150 mcg by mouth daily before breakfast. Active BLACK COHOSH PO Take 1 Tab by mouth daily. Active MULTI POIndications:Rh eumatoid arthritis(714.0) ([facility]) Take 1 Tab by mouth daily. 30 12 10/04/2008 Active meloxicam (MOBIC) 7.5 MG tabletIndication s:Knee pain Take 1 Tab by mouth daily. 30 10/04/2008 Active Methotrexate (Anti-Rheumatic) 2.5 MG TABSIndications: Rheumatoid arthritis(714.0) ([facility]) Take 10 Tabs by mouth every 7 days. 40 12 10/04/2008 Active tramadol (ULTRAM) 50 MG tabletIndication s:Rheumatoid arthritis(714.0) ([facility]) Take 1 Tab by mouth 3 times daily. 90 12 10/04/2008 Active acetaminophen CR (TYLENOL ARTHRITIS PAIN) 650 MG tabletIndication s:Rheumatoid arthritis(714.0) ([facility]) Take 1 Tab by mouth every 8 hours as needed for Fever and Pain. 10/04/2008 Active Active Problems Problem Noted Date Diagnosed Date Knee pain 09/05/2008 Overview (10/04/2008): 10/04/2008 cortisone shot right knee good response in Dec Flared again in last three days. Essential hypertension 09/05/2008 Overview (03/21/2015): DJD (degenerative joint disease) 09/05/2008 Medication monitoring encounter 04/05/2008 Overview (10/04/2008): 10/04/2008 on high dose MTX well tolerated Gets nausea with medication mild tolerable if taken with food. Rheumatoid arthritis 02/19/2007 Overview (04/28/2015): 05/27 polyarthritis feet primaarily, RF 1000, esr crp wnl, hepsa and hepc negative HAnd Xray neg MRI foot showed RA changes. Rapid3= 20 MTX started 07/29 Rapid3= 14, PPD negative 10/04/2008 MTX well tolerated, Rapid3= 7.3 Social History Tobacco Use Types Packs/Day Years Used Date Smoking Tobacco: Never Alcohol Use Standard Drinks/Week Comments No 0 (1 standard drink = 0.6 oz pur e alcohol) Comments No Sex and Gender Information Value Date Recorded Sex Assigned at Not on file Legal Sex Female 6:10 AM FORMER HAND Gender Identity Not on file Sexual Orientation Not on file Last Filed Vital Signs Vital Sign Reading Time Taken Comments Blood Pressure 122/90 10/04/2008 9:14 AM CDT Pulse 72 10/04/2008 9:14 AM CDT Temperature - - Respiratory Rate - - Oxygen Saturation - - Inhaled Oxygen Concentration - - Weight 73.5 kg (162 lb) 10/04/2008 9:14 AM CDT Height - - Body Mass Index - - Plan of Treatment Health Maintenance Due Date Last Done Comments BONE DENSITY TESTING 1955 COLOGUARD (AGES 45-75) - COL ON CA SCREENING 1955 COLON MONITORING 1955 COLONOSCOPY - COLON CA SCREENING 1955 CT COLONOGRAPHY - COLON CA SCREENING 1955 Colorectal Cancer Screening 1955 FIT - COLON CA SCREENING 1955 FLEX SIG - COLON CA SCREENING 1955 LIPID TESTING 1955 MAMMOGRAM 1955 HEPATITIS C SCREENING 01/01/1973 DTAP/TDAP/TD VACCINES (1 - Tdap) 1974 PNEUMOCOCCAL VACCINE 50+ (1 of 1 - PCV) 2005 ZOSTER VACCINE (1 of 2) 2005 COVID-19 VACCINE (1 - 2023-2 5 season) 2024 DEPRESSION SCREENING 06/21/2024 INFLUENZA VACCINE (Season Ended) 2025 Respiratory Syncytial Virus (RSV) Vaccine Pt: or over 60 yrs (1 - 1-dose 75+ series) 2030 HEPATITIS B VACCINE Aged Out No longe r eligible based on patient's age to complete this topic HIB VACCINE Aged Out No longer eligi ble based on patient's age to complete this topic HPV VACCINE Aged Out No longer eligi ble based on patient's age to complete this topic MENINGOCOCCAL (Group B) VACC INE SHARED DECISION-MAKING Aged Out No longer eligibl e based on patient's age to complete this topic MENINGOCOCCAL GROUPS A/C/Y/W VACCINE Aged Out No longer eligible b ased on patient's age to complete this topic Insurance [employer] MANAGED MEDICARE ADV
--- OUTSIDE RECORDS SUMMARY | 2024-11-27 14:24 | XMS_ITS ---
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 * Medical History: Objective: * Vitals: Assessment: Plan: * Treatment: * Billing Information: * Visit Code: * Procedure Codes: * Electronic signature of Kristina Panda MD on 11/27/2024 at 02:23 PM CDT Sign off status: Pending * Appointment Provider: Pau PANDA MD Date: 12/09/2023 Generated for Mary ann/Reinier/Maddieitting on: 11/27/2024 02:23 PM CDT
--- OUTSIDE RECORDS SUMMARY | 2024-11-27 14:24 | XMS_ITS | Patient Health Record ---
Author Organization [facility] Address [address] [facility] [address] [place] [address] Care Team Providers Care Sales Development Manager Name Role Phone Juancarlos LAZARO, Alex Primary Care Provider Kristina Weems Unavailable [phone] Reason For Referral No Information Plan Of Treatment No Information Insurance Providers Payer Name Payer Address Payer Phone Subscriber Number Group Number Insured Name Patient Relationship to Insured Coverage Start Date Coverage End Date [facility] Medicare Advantage [facility] [address] [address] [place] [address] [phone] [id number] Leisa Lowe Self - patient is the insured
--- OUTSIDE RECORDS SUMMARY | 2024-11-27 14:24 | XMS_ITS | Referral Summary ---
Author Organization [facility] Address [address] [facility] [place] [address] Care Team Providers Care Mobile Device Engineer Name Role Phone Alex Bauer MD Primary Care Provider [phone] Encounters Date Type Department Care Team Description 10/28/2024 12:37 PM CDT - 10/28/2024 11:59 PM CDT Hospital Encounter [facility] [address] [place] [address] Screening mammogram, encounter for Discharge Disposition: Discharge to home or self care from Last 3 Months Allergies Active Allergy Reactions Criticality Noted Date [...] on file 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 Gender Identity Not on file Sexual Orientation Not on file Last Filed Vital Signs Vital Sign Reading Time Taken Comments Blood Pressure 131/66 02/18/2022 10:55 AM CDT Pulse 76 02/18/2022 10:55 AM CDT Temperature - - Respiratory Rate - - Oxygen Saturation 93% 05/05/2017 11:11 AM FURNACE FIRER Inhaled Oxygen Concentration - - Weight 83.9 kg (185 lb) 10/28/2024 12:50 PM CDT Height 165.1 cm (5' 5) 10/28/2024 12:50 PM CDT Body Mass Index 30.79 10/28/2024 12:50 PM CDT Plan of Treatment Not on file Procedures Procedure Name Priority Date/Time Associated Diagnosis [...] Most Recently Relevant to Health Maintenance Insurance [facility] MEDICARE ADVANTAGE Care Teams Mobile Device Engineer Relationship Specialty Start Date End Date Alex Bauer MD [address] [place] [address] PCP - General Family Medicine 06/28/24
--- OUTSIDE RECORDS SUMMARY | 2024-11-27 14:24 | XMS_ITS ---
Author Organization [facility] Address [address] [facility] [address] [place] [address] Care Team Providers Care Bias Cutter Helper Name Role Phone Juancarlos LAZARO, Alex Primary Care Provider Emperatriz nelson Kristina Panda [phone] REASON FOR VISIT yd,new patient,cc Encounters Encounter Location Date Provider Diagnosis [facility] [address] [facility] [address] [place] [address] 12/15/2023 Kristina Panda Plan Of Treatment No Information Progress Notes * Mary LOWEhDOB:1955 (69 yo F)Acc No.[id number]:12/15/2023 Progress Notes Patient: Leisa ESPAÑA Appointment Provider: Pau PANDA MD :1955 A ge:68 Y S ex:Female Date:12/15/2023 Address:[address] [place], [place] [id number] Pcp:Alex Bauer MD Subjective: * Chief Complaints: * 1 . Yd,new patient,cc. * Medical History: Objective: * Vitals: Assessment: Plan: * Treatment: * Billing Information: * Visit Code: * Procedure Codes: * Electronic signature of Kristina Panda MD on 11/27/2024 at 02:23 PM CDT Sign off status: Pending * Appointment Provider: Pau PANDA MD Date: 12/15/2023 Generated for Mary ann/Reinier/Maddieitting on: 11/27/2024 02:23 PM CDT
[2024-11-27 15:06] LABS: Vitamin D 25 Hydroxy 50.5 ng/mL
== END 2024-11-27 13:09 | disposition home or self-care (01) ==
LOC: ANHLAB 13:11
PROVIDERS: PCP Emergency Medicine; Visit Provider Internal Medicine Rheumatology
DX: M81.0 Age-related osteoporosis without current pathological fracture (principal)
CPT/HCPCS: 36415; 80048; 82306; 83735; 84100

== ENCOUNTER 2025-01-22 00:29 | Day surgery (SDC) | payer MEDICARE, SELFPAY ==
[2025-01-01 13:47] VITALS: BMI 30.4
--- NOTE | 2025-01-15 09:29 | SUR.PREOP ---
Spoke with patient and confirmed new date and time for EGD procedure. Patient also confirmed that there has not been any changes to her medical history or medications since we spoke to her earlier in the month.
--- OUTSIDE RECORDS SUMMARY | 2025-01-22 00:32 | XMS_ITS | Clinical Summary ---
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 Gender Identity Not on file Sexual Orientation Not on file Plan of Treatment Health Maintenance Due Date Last Done Comments Colorectal Cancer Screening Colonoscopy (10 Years) 1955 Hepatitis C 1973 DTaP, Tdap and Td Vaccines ( 1 - Tdap) 1974 Mammogram Screening 1995 Zoster Vaccines (1 of 2) 2005 Annual Medicare Wellness Visit 01/07/2020 Dexa Scan (General) 01/07/2020 COVID-19 Vaccine (2023-2 5 season) 2024 04/19/2021, 08/21/2020, 07/31/2020 RSV Immunization or 60+ Years (1 - 1-dose 75+ series) 2030 Pneumococcal Vaccine: 50+ Years Completed 04/19/2021, 04/20/2020 Meningococcal B Vaccine Aged Out No l onger eligible based on patient's age to complete this topic Meningococcal Vaccine Aged Out No aristeo juanjose eligible based on patient's age to complete this topic RSV Immunizations Under 20 Months Aged Out No longer eligible b ased on patient's age to complete this topic Insurance [facility] Care Teams South Asian History Professor Relationship Specialty Start Date End Date Alex Bauer MD PCP - General FAMILY PRACTICE 08/12/21
--- OUTSIDE RECORDS SUMMARY | 2025-01-22 00:32 | XMS_ITS | Continuity of Care Document ---
Author Organization [facility] Address [address] [place] [address] Phone Care Team Providers Care It Portfolio Manager Name Role Phone Alex Bauer MD Unavailable Unavailable Allergies, Adverse Reactions, Alerts Substance Reaction Status Criticality Sulfa (Sulfonamide Antibiotics) Active No Information Medications Medication Instructions Dosage Effective Dates (start - stop) Status Comments oxybutynin chloride ER 10 mg tablet,extended release 24 hr take 1 tablet by oral route every day 10 MG - Active Synthroid 125 mcg tablet take 1 tablet b y oral route every day 125 MCG - Active spironolactone 50 mg tablet take 1 tablet by oral route every day 50 MG - Active hydrochlorothiazide 25 mg tablet take 1 tablet by oral route every day 25 MG - Active Protonix 40 mg tablet,delayed release take 1 tablet by oral route every day as needed 40 MG - Active albuterol sulfate HFA 90 mcg/actuation aerosol inhaler inhale 1 puff by inhalation route every 4 - 6 hours as needed as needed 1 puff - Active PRN for sob fluticasone 250 mcg-salmeterol 50 mcg/dose blistr powdr for inhalation inhale 1 puff by inhalation route 2 times every day in the morning and evening approximately 12 hours apart 1.00 puff - Active Plaquenil 200 mg tablet take 1 tablet by oral route 2 times every day 200 MG - Active calcium carbonate 500 mg (1,250 mg)-vitamin D3 200 unit tablet take one pill orally once daily - Active folic acid 1 mg tablet take 1 tablet by oral route every day 1 MG - Active Procedures Procedure Date OFFICE/OUTPATIENT VISIT, EST OFFICE/OUTPATIENT VISIT, EST OFFICE/OUTPATIENT VISIT, EST OFFICE/OUTPATIENT VISIT, EST OFFICE/OUTPATIENT VISIT, EST OFFICE/OUTPATIENT VISIT, EST OFFICE/OUTPATIENT VISIT, EST OFFICE/OUTPATIENT VISIT, EST OFFICE/OUTPATIENT VISIT, EST OFFICE/OUTPATIENT VISIT, EST OFFICE/OUTPATIENT VISIT, EST OFFICE/OUTPATIENT VISIT, EST OFFICE/OUTPATIENT VISIT, EST PREV VISIT, EST, 65 & OVER OFFICE/OUTPATIENT VISIT, EST OFFICE/OUTPATIENT VISIT, EST OFFICE/OUTPATIENT VISIT, EST OFFICE/OUTPATIENT VISIT, EST OFFICE/OUTPATIENT VISIT, EST OFFICE/OUTPATIENT VISIT, EST PREV VISIT, EST, 65 & OFFICE/OUTPATIENT VISIT, EST OFFICE/OUTPATIENT VISIT, EST OFFICE/OUTPATIENT VISIT, EST OFFICE/OUTPATIENT VISIT, EST OFFICE/OUTPATIENT VISIT, EST OFFICE/OUTPATIENT VISIT, EST OFFICE/OUTPATIENT VISIT, EST OFFICE/OUTPATIENT VISIT, EST OFFICE/OUTPATIENT VISIT, EST OFFICE/OUTPATIENT VISIT, EST OFFICE/OUTPATIENT VISIT, EST OFFICE/OUTPATIENT VISIT, EST OFFICE/OUTPATIENT VISIT, EST PREV VISIT, EST, 65 & OVER OFFICE/OUTPATIENT VISIT, EST OFFICE/OUTPATIENT VISIT, EST OFFICE/OUTPATIENT VISIT, EST OFFICE/OUTPATIENT VISIT, EST OFFICE/OUTPATIENT VISIT, EST OFFICE/OUTPATIENT VISIT, EST OFFICE/OUTPATIENT VISIT, EST PREV VISIT, EST, 65 & OVER OFFICE/OUTPATIENT VISIT, EST OFFICE/OUTPATIENT VISIT, EST OFFICE/OUTPATIENT VISIT, EST OFFICE/OUTPATIENT VISIT, EST OFFICE/OUTPATIENT VISIT, EST OFFICE/OUTPATIENT VISIT, EST OFFICE/OUTPATIENT VISIT, EST PREV VISIT, NEW, AGE 40-64 OFFICE/OUTPATIENT VISIT, NEW Advance Directives Directive Yes / No Effective Date File Name No Information Encounters Encounter Description Practice Location Reason(s) For Visit Diagnoses Date Provider Providers Copied on Encounter OFFICE/OUTPA TIENT VISIT, [facility], [address], [place], [place], [address], tel:[phone] [facility] OAB (chief complaint) Overactive bladder 5 Juancarlos Rossi [address], [place], [place], [address] , [place]. tel:[phone] OFFICE/OUTPA TIENT VISIT, [facility], [address], [place], [place], [address], tel:[phone] [facility] GERD1 (chief complaint) OAB (chief complaint) HTN (chief complaint) hypothyroi dism1 (chief complaint) Overactive bladderEssential (primary) hypertensionHypothy roidismGERD w/o esophagitis 5 Juancarlos Rossi [address], [address] [place], [address] , [place]. tel:[phone] OFFICE/OUTPA TIENT VISIT, [facility], [address], [place], [place], [address], [place] tel:[phone] [facility] sob1 (chief complaint) GERD1 (chief complaint) Mild intermittent asthma, uncomplicatedGERD w/o esophagitis 5 Juancarlos Rossi [address], [place], [place], [address] , [place]. tel:[phone] OFFICE/OUTPA TIENT VISIT, [facility], [address], [place], [place], [address], [place] tel:[phone] [facility] urinary1 (chief complaint) Acute cystitis without hematuriaOveractive bladderMixed incontinence 5 Juancarlos Johnson. [address], [place], [place], [address] , [place]. tel:[phone] OFFICE/OUTPA TIENT VISIT, [facility], [address], [place], [place], [address], [place] tel:[phone] [facility] urine1 (chief complaint) hyperglyce mia1 (chief complaint) renal (chief complaint) Acute cystitis without hematuriaHyperglyce miaRenal disease 5 Juancarlos Johnson. [address], [place], [place], [address] , [place]. tel:[phone] OFFICE/OUTPA TIENT VISIT, [facility], [address], [place], [place], [address], [place] tel:[phone] [facility] urinary frequency1 (chief complaint) Overactive bladderHyperglycemi a 5 Juancarlos Johnson. [address], [place], [place], [address] , [place]. [phone] OFFICE/OUTPA TIENT VISIT, [facility], [address] [place], [address], [place] tel:[phone] [facility] OAB (chief complaint) Overactive bladder 4 Juancarlos Johnson. [address], [place], [place], [address] , [place]. tel:[phone] OFFICE/OUTPA TIENT VISIT, [facility], [address], [place], [place], [address], [place] tel:[phone] [facility] gait1 (chief complaint) mammo (chief complaint) GERD1 (chief complaint) Abnormalities of gaitEncounter for oth screening for malignant neoplasm of breastGERD w/o esophagitis 4 Juancarlos Johnson. [address], [place], [place], [address] , [place]. tel:[phone] OFFICE/OUTPA TIENT VISIT, [facility], [address], [place], [place], [address], [place] tel:[phone] [facility] sob (chief complaint) SOBObstructive Sleep Apnea Hypopnea 4 Juancarlos Johnson. [address], [place], [place], [address] , [place]. tel:[phone] OFFICE/OUTPA TIENT VISIT, [facility], [address], [place], [place], [address], [place] tel:[phone] [facility] leg pain1 (chief complaint) Idiopathic peripheral autonomic neuropathy 4 Juancarlos Johnson. [address], [place], [place], [address] , [place]. tel:[phone] OFFICE/OUTPA TIENT VISIT, [facility], [address], [place], [place], [address], [place] tel:[phone] [facility] HTN (chief complaint) GERD1 (chief complaint) hypothyroi dism 1 (chief complaint) osteoporos is1 (chief complaint) sob1 (chief complaint) GERD w/o esophagitisOsteopor osisHypothyroidismE ssential (primary) hypertensionShortne ss of breath 4 Juancarlos Johnson. [address], [place], [place], [address] , [place]. tel:[phone] OFFICE/OUTPA TIENT VISIT, [facility], [address], [place], [place], [address], [place] tel:[phone] [facility] osteoporos is1 (chief complaint) thyroid1 (chief complaint) GERD1 (chief complaint) fatigue1 (chief complaint) GERD w/o esophagitisOsteopor osisHypothyroidismF atigue Sam- 4 Juancarlos Johnson. [address], [place], [place], [address] , [place]. tel:[phone] OFFICE/OUTPA TIENT VISIT, [facility], [address], [place], [place], [address], [place] [phone] [facility] osteoporos is1 (chief complaint) GERD1 (chief complaint) RA (chief complaint) HTN (chief complaint) GERD w/o esophagitisOsteopor osisEssential (primary) hypertensionRheumat oid arthritis 4 Juancarlos Johnson. [address], [place], [place], [address] , [place]. tel:[phone] PREV VISIT, EST, 65 & OVER [facility], [address], [place], [place], [address], [place] tel:[phone] [facility] physical (chief complaint) Encounter for general adult medical exam w abnormal findingsEssential (primary) hypertensionGERD w/o esophagitisOther specified disorder of bone densityObstructive Sleep Apnea HypopneaHypothyroid ism 4 Juancarlos Rossi [address], [place], [place], [address] , [place]. tel:[phone] OFFICE/OUTPA TIENT VISIT, [facility], [address], [place], [place], [address], [place] tel:[phone] [facility] GERD1 (chief complaint) HTN (chief complaint) RA (chief complaint) GERD w/o esophagitisEssentia l (primary) hypertensionRheumat oid arthritisInconclusi ve mammogram 3 Juancarlos Johnson. [address], [place], [place], [address] , [place]. tel:[phone] OFFICE/OUTPA TIENT VISIT, [facility], [address], [place], [place], [address], [place] tel:[phone] [facility] SOB1 (chief complaint) venous (chief complaint) osteopenia 1 (chief complaint) Shortness of breathOther specified disorder of bone structureVenous insufficiencyInconc lusive mammogramObstructiv e sleep apnea (adult) (pediatric) 3 Juancarlos Rossi [address], [place], [place], [address] , [place]. tel: [phone] OFFICE/OUTPA TIENT VISIT, [facility], [address], [place], [place], [address], [place] tel:[phone] [facility] sob (chief complaint) Mild intermittent asthma, uncomplicated Sep-2 3 Juancarlos Johnson. [address], [place], [place], [address] , [place]. tel: [phone] OFFICE/OUTPA TIENT VISIT, [facility], [address], [place], [place], [address], [place] tel:[phone] [facility] hypothyroi dism1 (chief complaint) HTN (chief complaint) sleep apnea1 (chief complaint) d (chief complaint) GERD1 (chief complaint) Primary central sleep apneaEssential (primary) hypertensionHypothy roidismOther specified disorder of bone densityGERD w/o esophagitis Jan- 3 Juancarlos Rossi [address], [address], [place], [place], [address] , [place]. tel: [phone] OFFICE/OUTPA TIENT VISIT, [facility], [address], [place], [place], [address], [place] tel:[phone] [facility] GERD1 (chief complaint) anxiety1 (chief complaint) HTN (chief complaint) sleep apnea1 (chief complaint) GERD w/o esophagitisGenerali zed Anxiety DisorderPrimary central sleep apneaEssential (primary) hypertensionEncount er for oth screening for malignant neoplasm of breastOther specified disorder of bone density 3 Juancarlos Johnson. [address], [place], [place], [address] , [place]. tel: [phone] PREV VISIT, EST, 65 & OVER [facility], [address], [place], [place], [address], [place] tel:[phone] [facility] physical (chief complaint) Encounter for general adult medical exam w abnormal findingsPrimary central sleep apneaVenous insufficiencyPulmon yamileth hypertensionOther specified disorder of bone densityRheumatoid arthritisGERD w/o esophagitisGenerali zed Anxiety Disorder 3 Juancarlos Johnson. [address], [place], [place], [address] , [place]. tel:[phone] OFFICE/OUTPA TIENT VISIT, [facility], [address], [place], [place], [address], [place] tel:[phone] [facility] HH (chief complaint) HTN (chief complaint) sleep apnea1 (chief complaint) Primary central sleep apneaEssential (primary) hypertensionVenous insufficiencyDiaphr agmatic herniaEncounter for oth screening for malignant neoplasm of breast 2 Juancarlos Johnson. [address], [place], [place], [address] , [place]. [phone] OFFICE/OUTPA TIENT VISIT, [facility], [address], [place], [place], [address], [place] tel:[phone] [facility] renal stone1 (chief complaint) sob (chief complaint) Hydronephrosis w/ kidney calculous obstructionPrimary central sleep apneaShortness of breathPulmonary hypertension 2 Juancarlos Johnson. [address], [place], [place], [address] , [place]. tel:[phone] OFFICE/OUTPA TIENT VISIT, [facility], [address], [place], [place], [address], [place] tel:[phone] [facility] renal stone1 (chief complaint) Hydronephrosis w/ kidney calculous obstruction 2 Juancarlos Johnson. [address], [place], [place], [address] , [place]. tel:[phone] OFFICE/OUTPA TIENT VISIT, [facility], [address], [place], [place], [address], [place] tel:[phone] [facility] hydronephr osis1 (chief complaint) sleep apnea1 (chief complaint) Hydronephrosis w/ kidney calculous obstructionPrimary central sleep apnea 2 Juancarlos Johnson. [address], [place], [place], [address] , [place]. tel:[phone] OFFICE/OUTPA TIENT VISIT, [facility], [address], [place], [place], [address], [place] tel:[phone] [facility] hydronephr osis1 (chief complaint) venous (chief complaint) sob1 (chief complaint) thyroid1 (chief complaint) Shortness of breathVenous insufficiencyHydron ephrosisHypothyroid ism 2 Juancarlos Johnson. [address], [place], [place], [address] , [place]. tel:[phone] OFFICE/OUTPA TIENT VISIT, [facility], [address], [place], [place], [address], [place] tel:[phone] [facility] sob (chief complaint) HTN (chief complaint) dysphagia1 (chief complaint) Shortness of breathPulmonary hypertensionDysphag iaEdema 2 Juancarlos Johnson. [address], [place], [place], [address] , [place]. tel:[phone] OFFICE/OUTPA TIENT VISIT, [facility], [address], [place], [place], [address], [place] tel:[phone] [facility] HTN (chief complaint) edema1 (chief complaint) leg color1 (chief complaint) fatigue1 (chief complaint) dysphagia1 (chief complaint) Venous insufficiencyPulmon yamileth hypertensionEdemaEs sential (primary) hypertensionDysphag ia 2 Juancarlos Johnson. [address], [place], [place], [address] , [place]. tel:[phone] OFFICE/OUTPA TIENT VISIT, [facility], [address] [place], [address], tel:[phone] [facility] dysphagia1 (chief complaint) SOB (chief complaint) edema1 (chief complaint) HTN (chief complaint) Pulmonary hypertensionDiaphra gmatic herniaVenous insufficiencyShortn ess of breathEdemaEssentia l (primary) hypertension 2 Juancarlos Rossi [address], [place], [place], [address] , [place]. tel:[phone] OFFICE/OUTPA TIENT VISIT, [facility], [address] [place], [address], [place] tel:[phone] [facility] edema1 (chief complaint) sob (chief complaint) choking1 (chief complaint) EdemaDyspneaVenous insufficiencyDyspha terry 2 Juancarlos Johnson. [address], [place], [place], [address] , [place]. tel:[phone] OFFICE/OUTPA TIENT VISIT, [facility], [address] [place], [address], [place] tel:[phone] [facility] choking1 (chief complaint) toe pain1 (chief complaint) DysphagiaCramp and spasm 2 Juancarlos Johnson. [address], [place], [place], [address] , [place]. 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 [address], [place], [place], [address] , [place]. tel:[phone] OFFICE/OUTPA TIENT VISIT, [facility], [address], [place], [place], [address], [place] tel:[phone] [facility] ambulation 1 (chief complaint) hearing loss1 (chief complaint) hypothyroi dism1 (chief complaint) osteopenia 1 (chief complaint) HypothyroidismAbnor malities of gaitConductive hearing loss, bilateralOther specified disorder of bone density 1 Juancarlos Johnson. [address], [place], [place], [address] , [place]. tel:[phone] PREV VISIT, EST, 65 & OVER [facility], [address], [place], [place], [address], [place] tel:[phone] [facility] physical (chief complaint) Encounter for general adult medical exam w abnormal findingsHypothyroid ismHyperglycemiaEss ential (primary) hypertensionRheumat oid arthritisAbnormal weight gain 1 Juancarlos Alex. [address], [place], [place], [address] , [place]. tel:[phone] OFFICE/OUTPA TIENT VISIT, [facility], [address], [place], [place], [address], [place] tel:[phone] [facility] thyroid1 (chief complaint) appetite1 (chief complaint) Loss of appetiteHypothyroid ism 1 Juancarlos Johnson. [address], [place], [place], [address] , [place]. tel:[phone] OFFICE/OUTPA TIENT VISIT, [facility], [address], [place], [place], [address], [place] tel:[phone] [facility] sleep (chief complaint) appetite1 (chief complaint) colon polyp1 (chief complaint) osteopenia 1 (chief complaint) RA (chief complaint) Polyp of colonRheumatoid arthritisOther specified disorder of bone densitySleep disorderLoss of appetite Sam-0 7-202 1 Juancarlos Johnson. [address], [place], [place], [address] , [place]. tel:[phone] [facility], [address], [place], [place], [address], [place] tel:[phone] [facility] No Information 1 Juancarlos Johnson. [address], [place], [place], [address] , [place]. tel:[phone] OFFICE/OUTPA TIENT VISIT, [facility], [address], [place], [place], [address], [place] tel:[phone] [facility] hypothyroi dism1 (chief complaint) glucose1 (chief complaint) HypothyroidismHyper glycemia 1 Juancarlos Rossi [address], [place], [place], [address] , [place]. tel:[phone] OFFICE/OUTPA TIENT VISIT, [facility], [address], [place], [place], [address], [place] tel:[phone] [facility] glucose1 (chief complaint) LFT (chief complaint) renal function1 (chief complaint) COVID19 (chief complaint) HyperglycemiaLiver diseaseRenal diseasePolyp of colonViral infection 0 Juancarlos Johnson. [address], [place], [place], [address] , [place]. tel:[phone] OFFICE/OUTPA TIENT VISIT, [facility], [address], [place], [place], [address], [place] tel:[phone] [facility] COVID (chief complaint) HTN (chief complaint) Viral infectionEssential (primary) hypertension 0 Juancarlos Johnson. [address], [place], [place], [address] , [place]. tel:[phone] OFFICE/OUTPA TIENT VISIT, [facility], [address], [place], [place], [address], [place] tel:[phone] [facility] COVID (chief complaint) Viral infection 0- 0 Juancarlos Rossi [address], [place], [place], [address] , [place]. tel:[phone] PREV VISIT, EST, 65 & OVER [facility], [address], [place], [place], [address], [place] tel:[phone] [facility] Physical (chief complaint) Encounter for general adult medical exam w abnormal findingsHypothyroid ismPolyp of colonRheumatoid arthritisLiver diseaseRenal diseaseHyperglycemi a 0 Juancarlos Rossi [address], [place], [place], [address] , [place]. tel:[phone] OFFICE/OUTPA TIENT VISIT, [facility], [address], [place], [place], [address], [place] tel:[phone] [facility] thyroid1 (chief complaint) knee pain1 (chief complaint) colon polyp1 (chief complaint) RA (chief complaint) HypothyroidismPolyp of colonRheumatoid arthritisPresence of right artificial knee jointBunion of right foot 0 Juancarlos Rossi [address], [place], [place], [address] , [place]. tel:[phone] OFFICE/OUTPA TIENT VISIT, [facility], [address], [place], [place], [address], [place] tel:[phone] [facility] thyroid1 (chief complaint) sick (chief complaint) HypothyroidismShort ness of breathOverflow incontinencePneumon ia 0 Juancarlos Rossi [address], [place], [place], [address] , [place]. tel:[phone] Referring Provider: [address], [place], [place], [address]. tel:[phone] OFFICE/OUTPA TIENT VISIT, [facility], [address], [place], [place], [address], [place] tel:[phone] [facility] thyroid1 (chief complaint) HTN (chief complaint) colon polyp (chief complaint) HypothyroidismEssen tial (primary) hypertensionPolyp of colon 9 Juancarlos Johnson. [address], [place], [place], [address] , [place]. tel:[phone] Referring Provider: Ayde [address], [place], [place], [address]. tel:[phone] OFFICE/OUTPA TIENT VISIT, [facility], [address], [place], [place], [address], [place] tel:[phone] [facility] sick (chief complaint) Acute bronchitis 9 Juancarlos Johnson. [address], [place], [place], [address] , [place]. tel:[phone] Referring Provider: Ayde Whaley [address], [place], [place], [address]. tel:[phone] OFFICE/OUTPA TIENT VISIT, [facility], [address], [place], [place], [address], [place] tel:[phone] [facility] osteopenia 1 (chief complaint) thyroid1 (chief complaint) HTN (chief complaint) hematuria1 (chief complaint) HypothyroidismOther specified disorder of bone densityHematuriaEss ential (primary) hypertensionPolyp of colonOther specified abnormal findings of blood chemistry 9 Juancarlos Johnson. [address], [place], [place], [address] , [place]. tel:[phone] Referring Provider: Ayed Whaley [address], [place], [place], [address]. tel:[phone] OFFICE/OUTPA TIENT VISIT, [facility], [address], [place], [place], [address], [place] tel:[phone] [facility] hematuria1 (chief complaint) osteopenia 1 (chief complaint) thyroid (chief complaint) b12 (chief complaint) HematuriaHypothyroi dismVitamin D deficiency, unspecifiedOther specified disorder of bone densityOther specified abnormal findings of blood chemistry 9 Juancarlos Johnson. [address] [place], [place], [address] , . [phone] Referring Provider: Ayde Whaley [address] [facility], [place], [place], [address]. tel:[phone] PREV VISIT, NEW, AGE 40-64 [facility], [address] [place] [address] [address], [place], [place], [address], [phone] [facility] PHysical (chief complaint) Encounter for general adult medical exam w abnormal findingsOther specified disorder of bone densityPolyp of colonEssential (primary) hypertensionHypothy roidismFatigue 9 Juancarlos Rossi [address] [facility] [place], [address] , . [phone] Referring Provider: Ayde Whaley [place], [place], [address]. tel:[phone] Family History Family Member Type Diagnosis Age At Onset Mother Problem (finding) Alive and well Mother Problem (finding) Diabetes mellitus Father Problem (finding) 75 due to sepsis Sister Problem (finding) Diabetes mellitus Payers Payer name Insurance type Covered democrat ID Authoriza tion(s) [facility] [id number] Social History Type Description Quantity Date Captured Comments Alcohol Use Details No Caffeine Use Details Unknown Tobacco Use Status Current non-smoker 25 Smoking Status Never smoker Sex Female Vital Signs Date / Time: Height Weight BMI Pulse Rate Blood Pressure Temperature Respiratory Rate Body Surface Area Head Circumference BMI percentile Pulse Ox Inhaled Ox 10:12 PM 67.00 in 185.00 lbs 28.9 7 kg/m eter (2) Chief Complaint And Reason For Visit From encounter dated '12/26/2024 22:08'. OAB (chief complaint). Description: Pt has OAB Pt states that mybetriq is too expensive. She has urinary urgency and frequency. Pt was evaluated by urology PT wants to go back to oxybutynin Plan Of Treatment Date Type Action Status Goal Special diet education compl eted Goal Special diet education compl eted Goal Special diet education compl eted Goal Special diet education compl eted Referral Ordered: ESOPH ENDOSCOPY, DILATION ordered Referral Ordered: Urology (related to Mixed incontinence) ordered Referral Ordered: Physical Therapy (related to Abnormalities of gait) ordered Referral Referred To: Kristina Miranda MD [address] [facility]
[address] [place], [place], [id number] Ordered: Referrals: Kristina Miranda MD. Evaluate and treat ordered Referral Ordered: ESOPHAGUS ENDOSCOPY ordered Referral Ordered: OPERATIVE UPPER GI ENDOSCOPY ordered Referral Ordered: Urology (related to Hydronephrosis w/ kidney calculous obstruction) ordered Referral Ordered: Referrals: Urology. Evaluate and treat ordered Referral Ordered: CT ABDOMEN&PELVIS W/CONTRAST ordered Referral Referred To: Enoc Kaur [facility] [place], [id number] Ordered: Referrals: Enoc Kaur. Evaluate and treat ordered Referral Ordered: CT PULMONARY ordered Referral Ordered: SLEEP STUDY, ATTENDED ordered Referral Ordered: DOPPLER ECHO EXAM, HEART ordered Referral Ordered: US VENOUS DOPPLER BILATERAL ordered Referral Ordered: UPPER GI AIR CONTAST ordered Referral Ordered: Ophthalmology (related to Rheumatoid arthritis) ordered Referral Ordered: Rheumatology (related to Rheumatoid arthritis) ordered Referral Ordered: Gynecology (related to Hypothyroidism) ordered Referral Ordered: Orthopedic Surgery (related to Pain in right knee) ordered Referral Ordered: Podiatry (related to Pain in right knee) ordered Referral Ordered: Referrals: Gynecology. Evaluate and treat ordered Referral Ordered: Referrals: Ophthalmology. Evaluate and treat ordered Referral Ordered: Referrals: Rheumatology. Evaluate and treat ordered Referral Ordered: Referrals: Podiatry. Evaluate and treat ordered Referral Ordered: Physical Therapy (related to Abnormalities of gait) ordered Referral Referred To: Physical Therapy Ordered: Referrals: Physical Therapy. Evaluate and treat ordered Referral Ordered: Orthopedic Surgery (related to Presence of right artificial knee joint) ordered Referral Ordered: EVIE BUTCHER -Allopathic & Osteopathic Physicians : Internal Medicine : Rheumatology (related to Rheumatoid arthritis) ordered Referral Ordered: Chapito Powell -Podiatric Medicine & Surgery Service Providers : Edi Consultant (related to Bunion of right foot) ordered Referral Referred To: EVIE BUTCHER [address] [place], [place], [id number] Ordered: Referrals: Allopathic & Osteopathic Physicians : Internal Medicine : Rheumatology. EVIE BUTCHER. Evaluate and treat ordered Referral Ordered: Referrals: Orthopedic Surgery. Evaluate and treat ordered Referral Referred To: Chapito Powell [address], [place], [phone] Ordered: Referrals: Podiatric Medicine & Surgery Service Providers : Edi Consultant. Chapito Powell. Evaluate and treat ordered Referral Ordered: COLONOSCOPY AND BIOPSY ordered Referral Ordered: CHEST X-RAY PA/LAT TWO-VIEWS ordered Referral Ordered: NUC MED LUNG V/Q SCAN ordered Referral Ordered: US THYROID ordered Referral Ordered: MAMMOGRAM, SCREENING ordered Referral Ordered: DXA BONE DENSITY, AXIAL ordered Appointment Leisa Lowe BOOKED History Of Present Illness Encounter Date Complaint History Of Prese nt Illness OAB Pt has OAB Pt st ates that mybetriq is too expensive. She has urinary urgency and frequency. Pt was evaluated by urology PT wants to go back to oxybutynin GERD1 pt has chronic G ERD with dysphagia. Pt underwent EGD dilation last year but she notices dysphagia again recently Pt is on Protonix OAB pt has OAB Pt sa w urology and she was told that she has OAB pt was given oxybutynin but does not help Pt wants to try mybetriq. HTN Pt has HTN. Pt t akes hctz and spironolactone. her bp is ok. pt denies any edema hypothyroidism1 pt has hypothyro idism Pt takes synthroid pt denies any dysphagia or neck pain sob1 Pt feels frequen t sob. Pt denies any chest pain Pt had benign cardiac echo and CTA of chest pain Pt denies any hemoptysis cough .Pt has been using albuterol frequently GERD1 Pt has chronic G ERD pt underwent EGD dilation recently Pt denies any dysphagia .Pt doing ok with protonix. Pt needs Protonix refilled. urinary1 Pt has urinary f requency without urgency Pt also notices some urine incontinence Pt states that oxybutynin is helping but after she took the levofloxacin, her urinary frequency is worse. Pt denies any abd pain or flank pain or fever, chill Pt denies any burning, Pt denies any dysphagia. Pt was treated for UTI. She states that her urinary frequency are worse after abx. urine1 Pt has urinary f requency and urgency pt is on oxybutynin for OAB symptoms. she appears to have UTI. Pt denies any flank pain hyperglycemia1 Pt has mild high glucose. Her A1c is 5.5 Pt was told by insurance that her A1c was 7? renal Pt has mildly lo w renal function Pt has normal urine output urinary frequency1 Pt has been h aving urinary frequency and urgency for several months Pt states that oxybutynin is helping her symptoms. pt states that a visiting nurse came over anc check her finger stick and her A1c was 7.0 last Wednesday. Her glucose was ok 5 months ago OAB Pt has frequent urination with urgency frequency. Pt denies any dysuria. Pt states that she has hard time sleeping at night due to frequent urination at night Pt denies any blood in urine. Pt denies any flank pain gait1 Pt notices some gait issue recently Pt states that she has slouching her upper back and her leg seems unsteady when she walks. Pt denies any dizziness Pt denies any syncope Pt denies any fall Pt does have back and knee problem due to arthritis Pt denies any falling . Pt feels that she has poor posture when she walks. mammo Pt denies any br east issue. Pt needs mammo GERD1 Pt has history o f GERD s/p EGD dilation Pt is on protonix and she denies any dysphagia or Gerd. sob Pt has intermitt ent sob, sometimes related to exertion pt does not have signs of cardiac disease or pulmonary disease .Pt does have sleep apnea but she is noncompliant with cpap Pt uses albuterol PRN Pt usually needs to use albuterol 1-2 per months Pt lost her inhaler and need it refilled. Pt denies any hemoptysis. Pt does have sleep apnea with pulmonary HTn Pt does not want to use cpap leg pain1 Pt c/o acute ons et of bilateral lower extremity pain and numbness and tingling feeling and bilateral feet numbness and tingling since one week ago. Pt states that she feels like electric shock feeling both lower leg and feet. Pt denies any back pain or any sciatica Pt states that the above symptoms occurred for two days and then resolved sine two days ago. Pt denies any cold extremity. hypothyroidism 1 Pt has hypothyr oidism. Pt takes synthroid. Pt denies any dysphagia HTN Pt has HTN pt ta kes spironolactone and hctz and her bp is ok. GERD1 Pt has chronic G ERD with dysphagia .Pt had negative EGD but she did undergo EGD dilations. Pt takes protonix and she denies any dysphagia. osteoporosis1 Pt has osteoporo sis. Pt takes calcium and d and she is seeing rheumatology and she received reclast infusion recently sob1 Pt has mild sob occasionally Pt denies any cough, hemoptysis. Pt does not smoke osteoporosis1 Pt has osteoporo sis. pt received a call from Dr. Miranda but she is not sure if she wants to go to [facility] for her cornel. Pt wants to check with her current green building materials distributor to see if he does osteoporosis treatment with infusion thyroid1 Pt has low thyro id. Pt denies any dysphagia or neck pain Pt is on synthroid and tsh ok GERD1 Pt has chronic G ERD Pt is on protonix. Pt denies any dysphagia Pt denies any nausea, vomiting Pt has EGD scheduled next week. pt refused to do mag due to expense fatigue1 Pt has chronic f atigue .pt did not want to do iron panel due to expense. Pt denies any sob pt feels ok now RA Pt has RA. Pt ta kes plaquenil and nabumetone. Pt sees rheumatology in [place] but is too far for her She wants to see somebody closer HTN Pt has HTN and l ower extremity dependent edema Pt is on hctz and spironolactone and doing ok. her bp is borderline high today osteoporosis1 Pt has osteoporo sis Pt takes calcium and vitamin D pt denies any spontaneous fracture. GERD1 pt has chronic G ERD with mild dysphagia Pt has been taking protonix and her dysphagia resolved. Pt did not do EGD due to expense. Pt denies any abd pain physical Pt needs annual physical pt has HTN Pt takes spironolactone and hctz an her bp is stable Pt denies any leg edema. Pt has chronic GERD Pt is on pepcid and she has been feeling dysphagia lately. Pt also has low thyroid. pt takes synthroid Pt has osteopenia Pt takes calcium and D. Pt still has not done bone density yet.. Pt feels chronic fatigue and she can fall asleep anytime during the day Pt is noncompliant with cpap RA Pt has RA. Pt ta kes plaquenil and nabumetone and doing ok. pt wants to see if she can find a rheumatology that is closer. GERD1 Pt denies any dy sphagia or GERD pt takes protonix daily Pt wonders if she needs to keep taking protonix. HTN Pt has HTN and m ild edema. Pt takes spironolactone and HCTZ and is doing ok Her bp is ok. Pt denies any worsening edema venous Pt has chronic v enous insufficiency. pt has some lower extremity edema. Pt was evaluated by vascular surgeon and was told it is not bad enough for surgery. Pt denies any orthopnea or PND. Pt denies any chest pain SOB1 Pt has frequent exertional sob. Pt uses albuterol 4-5 per week. Pt denies any wheezing Pt denies any chest pain Pt had benign chest CT and cardiac echo showed pulmonary HTN only. Pt states that she is not sure if she is using albuterol inhaler correctly and sometimes she does not think the medication is getting into her lungs. osteopenia1 Pt has osteopeni a .Pt takes calcium and D and she works on weight bearing exercise. Pt denies any fracture sob Pt feels intermi ttent sob, regardless of physical activity pt denies any chest pain Pt had negative chest Ct Pt uses albuterol very rarely and she actually has not need to use it for over 3 months. Pt denies any cough or hemoptysis. pt accidently lost her inhaler and she wants a refill Pt denies any acute sob. hypothyroidism1 Pt has low thyro id Pt denies any dysphagia. Pt takes synthroid and tsh is ok. Pt needs synthroid refill. HTN Pt tapia HTN, Pt ta kes hctz and spironolactone and her bp is ok Pt denies any chest pain or headache Pt needs refill sleep apnea1 Pt has mild slee p apnea and pulmonary HTN Pt could not tolerate cpap .Pt is off cpap. Pt feels occasional sob without wheezing and she wants refill of albuterol. 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 pt does not feel she is using cpap correctly at night HTN Pt takes spirono lactone and hctz and her bp is ok anxiety1 Pt denies any an xiety or depression and she no longer takes lexapro. Pt denies any suicidal or homicidal thought ,Pt denies any crying spells GERD1 Pt states that s he no longer has GERD and she denies any dysphagia and she no longer needs to take protonix physical Pt needs annual physical pt has HTN Pt takes spironolactone and hctz an her bp is stable Pt denies any leg edema. Pt has chronic GERD Pt failed pepcid Pt takes protonix and she denies any GERD or dysphagia. Pt also has low thyroid. pt takes synthroid Pt has osteopenia Pt takes calcium and D. Pt also feels slightly depressed due to her passing. Pt denies any suicidal or homicidal thought pt denies any crying spells. Pt has mild PH and she has sleep apnea Pt still has not set up cpap yet. Pt feels occasional sob and she has inhaler but she really has not had the need to use it at all for long time Pt denies any new complaints HH Pt has mild dysp hagia and GERD Pt has HH Pt takes protonix and her symptoms resolved. Pt denies any abd pain, early satiety, nausea, vomiting, etc. Pt failed pepcid HTN Pt has mild HTN and LE dependent edema. Pt doing ok with spironolactone. 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 Pt is waiting for CPAP set up. Pt has mild PH renal stone1 Pt has right dis anthony urethral renal stone with right hydronephrosis. Pt saw urology and she had right urethral stent placed and removed and renal stone removed as well. Pt denies any flank pain, fever, chill, urinary symptoms, etc. Pt denies any abdominal pain sob Pt has chronic a nd mild and intermittent resting and exertional dyspnea. Pt denies any chest pain Pt had benign CTA pulmonary and cardiac echo showed mild pulmonary HTN. Pt c/o intermittent fatigue. Pt had sleep study done which showed mild sleep apnea Pt denies any cough, hemoptysis, orthopnea, PND, etc Pt has mild LE edema chronically due to venous insufficiency. renal stone1 Pt tapia obstructiv e right distal urethral stone with right hydronephrosis. Pt denies any fever, chill. pt has cornel with urology in two days. Pt went to ER yesterday due to flank pain and she was given norco for pain PRN and she just run out of the norco and she still has flank pain, Pt also given flomax., Pt denies any fever, chill, nausea, vomiting. Pt has normal UO hydronephrosis1 Pt has incidenta l finding of bilateral hydronephrosis on chest CT and further CT urogram showed obstructive right distal ureteral stone with moderate right hydronephrosis. Pt also has nonobstructive left renal stone as well. Pt denies any abdominal pain or flank pain pt denies any difficulty with urination or any dysuria, frequency, urgency. fever, chill, nausea, vomiting, etc. sleep apnea1 Pt did do home s leep study but she did not sign the consent so no reading is available yet. hydronephrosis1 Pt has bilateral hydronephrosis. Pt has normal UO .Pt denies any flank pain Pt denies any abd pain. 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 Pt has persistent LE edema, which is well controlled with hctz and also spironolactone. sob1 Pt has persisten t exertional sob. pt denies any chest pain Pt denies any wheezing. thyroid1 Pt has hypothyro idism. Pt takes synthroid Pt needs it refilled . HTN Pt has HTN, pt t akes spironolactone and bp stable. Pt still has some mild LE edema despite taking spironolactone. dysphagia1 Pt has HH and mi ld dysphagia, which resolved with protonix. Pt needs protonix refilled Pt states that her dysphagia resolved with protonix .Pt denies any etta GERD sob Pt c/o persisten t exertional dyspnea. Pt denies any chest pain. Pt denies any wheezing. Her cardiac echo is ok and chest x ray ok. Pt does not have any signs of CHF. Pt does have PH and possible sleep apnea. leg color1 Pt notices scatt ered brownish pigmentation around both legs without pain or warmth. Pt denies any calf pain edema1 Pt has mild lowe r extremity dependent edema. Pt states that the edema is worse at night after standing on her feet all day and improves in the morning. Pt has been wearing compression stocking. Pt denies any sob HTN Pt has HTN Pt ta kes spironolactone and her bp is ok now. Pt denies any chest pain or headache fatigue1 Pt has mild fati [place] with pulmonary HTN. Pt denies any snoring. Pt has not heard from [facility] for home sleep study yet dysphagia1 Pt states that d ysphagia and chocking sensation resolved with protonix. Pt denies any early satiety, nausea, vomiting, abd pain dysphagia1 Pt feels that sh e feels some choking sensation and something get caught in the back of throat and mid chest area when she eats solid for 4 weeks Pt states that it occurred in the past but not very frequent. Pt zaheer any GERD Pt denies any chest pain Pt denies any issue with liquid. Pt denies any abd pain or appetite loss. Pt does have history of GERD long time ago and she took some nexium which resolved her symptoms Pt had remote EGD which was ok. Pt denies any early satiety or agusto loss or appetite loss. Upper GI showed HH SOB Pt feels mild so b for 3 months Pt denies any exertional dyspnea or any chest pain. her chest x ray is ok. Cardiac echo showed PH edema1 Pt notices bilat eral LE mild edema for several weeks. Pt denies any cold extremity or discoloration Pt denies any foot numbness or tingling Pt denies any claudication. pt also feels slightly more sob lately .Pt denies any orthopnea or PND Pt denies any chest pain Pt denies any calf pain or recent travel or bedrest. Pt denies any etta leg pain. Venous doppler study was ok. Pt does have varicose veins HTN Pt has mildly el evated BP since off HCTZ sob Pt feels sob for 3 months Pt denies any exertional dyspnea or any chest pain. choking1 Pt feels that ulises damon feels some choking sensation and something get caught in the back of throat and mid chest area when she eats solid for 4 weeks Pt states that it occurred in the past but not very frequent. Pt zaheer any GERD Pt denies any chest pain Pt denies any issue with liquid. Pt denies any abd pain or appetite loss. Pt does have history of GERD long time ago and she took some nexium which resolved her symptoms Pt had remote EGD which was ok. Pt denies any early satiety or agusto loss or appetite loss edema1 Pt notices bilat eral LE mild edema for several weeks. Pt denies any cold extremity or discoloration Pt denies any foot numbness or tingling Pt denies any claudication. pt also feels slightly more sob lately .Pt denies any orthopnea or PND Pt denies any chest pain Pt denies any calf pain or recent travel or bedrest. Pt denies any etta leg pain choking1 Pt feels that ulises damon feels some choking sensation and something get caught in the back of throat and mid chest area when she eats solid last week. Pt states that it occurred in the past but not very frequent. Pt zaheer any GERD Pt denies any chest pain Pt denies any issue with liquid. Pt denies any abd pain or appetite loss. Pt does have history of GERD long time ago and she took some nexium which resolved her symptoms Pt had remote EGD which was ok. toe pain1 Pt c/o left leg cramp and left toe and hand cramp only at night for the past few days Pt states that she only had some toe cramp last night Pt denies any leg swelling or pain Pt denies any recent travel or bedrest Pt states that it woke her up and with severe cramp last night. Pt denies any tinging or numbness of legs Pt denies any chest pain or sob. gait Pt has been havi ng gait instability for several months pt denies any dizziness Pt states that she feels that she trips a lot which makes her fall on right side. Pt denies any actual fall on the ground. Pt does have knee and ankle issue. Pt denies any orthostasis. Pt did attend PT one time only. Pt denies any ear pain or tinnitus .Pt does have mild hearing loss. Pt denies any foot drop eye exam1 pt has cataract and she sees boat carpenter. 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 Pt sees Dr. Zendejas RA Pt has RA Pt marcell es methotrexate and folic acid Pt sees rheumatology Pt has knee pain and ankle pain Pt just saw podiatry and she received an injection to right ankle and she is doing better. Pt denies any ankle or knee swelling Pt has cornel with rheumatology next week. pt needs referral to ortho, podiatry and green building materials distributor ambulation1 Pt has several v ague complaints. Pt states that she sometimes stumbles when she walk for unknown reason. Pt denies any dizziness, hearing loss, ear pain, pre or syncope, LOC. Pt denies any foot drop or any saddle area paresthesia or any weakness. Pt denies any calf pain or leg pain Pt had right knee replacement in 2019 and she thinks she still walks a little funny which may attributes to her stumbling Pt denies any fall. Pt is very vague about her symptoms Pt denies any chest pain. Pt denies any back pain or sciatica. Pt denies any speech problem or neurological symptoms. Pt has been noticing above symptoms for several months. Pt denies any falling hearing loss1 Pt notices mild hearing loss recently .pt denies any ear pain or any sinus symptoms or headache or tinnitus. hypothyroidism1 Pt has hypothyro idism. Pt takes synthroid. Her TSH is ok. Pt denies any dysphagia or neck pain osteopenia1 Pt has osteopeni a Pt takes calcium and D and she tries weight bearing exercise. Her vitamin D level is ok physical pt needs annual physical. pt has hypothyroidism pt takes synthroid. Pt denies any dysphagia or neck pain. Pt has RA Pt takes methotrexate and folic acid .pt sees rheumatology Pt has mild joint pain Pt denies any swelling. Pt has not been taking hctz for a while .pt denies any edema her bp is ok without hctz. Pt has osteopenia .Pt takes calcium and she is doing weight bearing exercise. Pt overall feels well Pt gained some weight. Pt has been eating a lot of donut and drink a lot of soda. her A1c is 6.1. Pt denies any polyuria polydipsia appetite1 Pt states that h er appetite is back to normal now and she denies any anxiety or depression Pt denies any crying spells, weight loss or abd pain thyroid1 Pt has hypothyro idism Pt takes synthroid Pt denies any dysphagia or neck pain. sleep Pt works from 6 am to 2 pm and she always wakes up 3 am and she usually takes a nap when she gets home around afternoon and wakes up around 8-9 pm and then she has hard time going to sleep again and she usually wakes up around 3 am. Pt denies any fatigue pt states that she has same schedule for years. Pt states that she is not sleeping well but she really can not tell me why since there is no change in her sleep and wake cycle.. appetite1 Pt also states t hat she is not eating well but she denies any appetite loss, nausea, vomiting ,weight loss, early satiety, change of bowel etc. Pt also could not tell me what she means by not eating well. Pt denies any weight loss. Pt denies any abd pain colon polyp1 Pt has tubular a denoma. Pt denies any change of bowel or GI bleeding or weight loss Pt has not been able to get colonoscopy done due to COVID. osteopenia1 Pt has osteopeni a. Pt takes calcium and D and she does weight bearing exercise. Pt denies any fx RA Pt has RA. pt ta kes methotrexate and folic acid Pt sees green building materials distributor .Pt denies any acute joint pain or deformity or redness or swelling glucose1 Pt had lab done recently without fasting and her glucose was high. her A1c was normal 3 months ago Pt denies any polyuria, polydipsia hypothyroidism1 Pt has hypothyro idism. Pt takes 125 mcg synthroid daily. She had lab done and apparently was under replaced. Her thyroid level was ok last February. Pt denies any fatigue renal function1 renal function i s ok now. Pt has normal UO LFT Her lFT is ok. N o hepatitis. Pt denies any abd pain or jaundice. glucose1 Pt has high gluc ose Pt denies any polyuria, polydipsia. Pt did not do lab fasting COVID19 Pt denies any fe sarwat, cough, sob, loss of taste and smell for at least one week Pt tested positive for COVID 16 days ago COVID Pt has COVID-19. Pt started to have symptoms 6 days ago. Pt feels fatigue, dry cough with mild sob. Pt states that she has not felt any improvement during last 4-5 days. Pt denies any fever Pt has mild loss of taste and smell. Pt is frustrated about the lack of improvement. HTN Pt has HTN Pt ta kes HCTZ. Pt needs refill. Her bp is around 120/80 Pt denies any swelling COVID Pt supposes to d o colonoscopy and she was tested on 05/11/20 as a screening process and it did come back positive on 05/13/20. Pt did not have symptoms until yesterday. Pt has been staying home self quarantine since last 05/13/20. Pt c/o mild headache, glossy eyes, mild chills, and mildly sob with very mild dry cough since yesterday. Pt denies any fever. Pt denies any sick contact. Her temp is around 97. Physical Pt needs annual physical PT has RA. Pt sees rheumatology. Pt takes methotrexate and folic acid .Pt doing ok. PT denies any joint pain Pt has hypothyroidism. Pt takes synthroid. Her tSH is ok. Pt had lab done which showed borderline low renal and also high LFT. Pt has normal UO. Pt denies any abd pain or jaundice. Pt overall feels well. Pt denies any complaints colon polyp1 Pt has tubular a denoma on colonoscopy two years ago pt denies any GI issue Pt needs to repeat colonoscopy now . RA Pt has RA .Pt ta kes methotrexate and she needs referral for her rheumatology. Pt is seeing rheumatology currently thyroid1 Pt takes synthro id 125 mcg daily Pt denies any dysphagia or neck pain Pt still has not done TSH yet. Pt denies any fatigue knee pain1 Pt is s/p right knee replacement and she sees ortho Pt needs referral for her ortho. Pt denies any knee pain Pt has cornel with ortho next week. Pt is s/p bunion surgery both feet and she notices some pain around the bunion area right foot recently and she needs a referral to go back to see her media relations associate Pt denies any swelling or redness or injury thyroid1 Pt has low thyro id Pt is on 137 mcg and her TSH is low Pt denies any chest pian sick Pt c/o headache, myalgia, sob leaking urine since 4-5 days. Pt denies any burn with urination Pt notices some urge but she has difficulty with going when she actually trying to go . Pt denies any incontinence in the past Pt has fever as high as 101. Pt denies any recent travel.. Pt feels sob and dizziness. Pt denies any calf pain. Pt denies any chest pain colon polyp pt has colon nahomi yp last year. Pt has tubulovillous polyp. Pt denies any GI bleeding or weight loss thyroid1 Pt has autoimmun e thyroid disease, Pt takes synthroid 150 mcg daily. She is over replaced. Pt denies any chest pain, headache, palpitation Pt denies any dysphagia Pt denies any neck pain HTN Pt has HTn. Pt t akes hctz and her BP is borderline. Pt denies any chest pain or headache sick Pt c/o sinus con gestion, ear pain, sore throat productive coughing for one week Pt denies any fever, recent travel or sick contact Pt failed OTC meds. hematuria1 repeat UA showed negative for hematuria and cytology ok. Pt denies any UTI symptoms or flank pain osteopenia1 Pt has osteopeni a, which is the same from 3 years ago pt denies any fx Pt takes calcium and D and is working on weight bearing exercise thyroid1 Pt has low thyro id Pt takes synthroid 150 mcg daily pt had benign thyroid ultrasound Pt only had thyroid nodule removed but no thyroidectomy Pt denies any chest pain, headache palpitation HTN Pt has HTn Pt ta kes HCTZ and BP is stable b12 Pt takes b12 sup plement and she drinks energy drinks some times due to fatigue. High B12 is slightly high thyroid Pt has chronic l ow thyroid Pt had ? partial vs completely thyroidectomy. Pt has high thyroglobulin pt denies any dysphagia or any neck pain. Pt is currently being under replaced. Pt does feel fatigue and she has been drinking energy drink to give her more energy. osteopenia1 Pt has osteopeni a and low D. Pt denies any fracture Pt has not done bone density yet hematuria1 Pt has hematuria Pt denies any flank pain or UTI symptoms PHysical Pt needs annual physical. Pt has RA pt sees rheumatology Pt takes methotrexate, folic acid and calcium and vitamin D. Pt denies any acute flare up. pt just had right knee replacement pt has hypothyroidism. Pt takes synthroid. Pt has HTn Pt takes HCTZ and her BP is borderline today. Pt feels mildly fatigue Pt denies any sob or chest pain, Pt denies any headache or edema. Pt denies any other complaints Instructions Date Instruction Additional Infor vianneyion Weight management Related to Hyp othyroidism Special diet education Related t o Body mass index (BMI) 27.0-27.9, adult Increase physical activity Relat ed to Hypothyroidism Special diet education Related t o Body mass index (BMI) 28.0-28.9, adult Increase physical activity Relat ed to Hypothyroidism Increase physical activity Relat ed to Hematuria Weight management Related to Hem aturia Special diet education Related t o Body mass index (BMI) 27.0-27.9, adult Increase physical activity Relat ed to Encounter for general adult medical exam w abnormal findings Weight management Related to Enc ounter for general adult medical exam w abnormal findings Special diet education Related t o Body mass index (BMI) 28.0-28.9, adult Assessments Type Assessment Date assessment Overactive bladder Mental Status Date Cognitive Assessment Orientation - [place] ed to time, place, person, situation.
--- OUTSIDE RECORDS SUMMARY | 2025-01-22 00:32 | XMS_ITS ---
Author Organization [facility] Address [address] [facility] [place] [address] Care Team Providers Care Yardage Control Operator Forming Name Role Phone Juancarlos LAZARO, Alex Primary Care Provider UnavailKristina Khoury [phone] REASON FOR VISIT yd,inpatient services rn referral in chart,cc Encounters Encounter Location Date Provider Diagnosis [facility] [address] [facility] [address], [place] [address] 12/09/2023 Kristina Panda Plan Of Treatment No Information Progress Notes * Mary LOWEhDOB:1955 (70 yo F)Acc No.[id number]:12/09/2023 Progress Notes Patient: Leisa ESPAÑA Appointment Provider: Pau PANDA MD :1955 A ge:68 Y S ex:Female Date:12/09/2023 Address:[address] [place], [place] [address] Pcp:Alex Bauer MD Subjective: * Chief Complaints: * 1 . Yd,inpatient services rn referral in chart,cc. * Medical History: Objective: * Vitals: Assessment: Plan: * Treatment: * Billing Information: * Visit Code: * Procedure Codes: * Electronic signature of Kristina Panda MD on 01/22/2025 at 12:32 AM CDT Sign off status: Pending * Appointment Provider: Pau PANDA MD Date: 12/09/2023 Generated for Mary ann/Reinier/Maddieitting on: 01/22/2025 12:32 AM CDT
--- OUTSIDE RECORDS SUMMARY | 2025-01-22 00:32 | XMS_ITS | Clinical Summary ---
Author Organization [facility] Address [address] [place] [address] Care Team Providers Care Environmental Construction Engineer Name Role Phone Unavailable Primary Care Provider Unavailabl e Source Comments [facility],non-owned Affiliates and Associated Physician Practices is amultiple site organization consisting of ambulatory clinics and hospital sitesin [place], [place] and [place]. This disclosure is being madepursuant to the Care Everywhere program and may not contain all information available regarding this patient. Last updated 18.[facility] Allergies Active Allergy Reactions Criticality Noted Date Comments Sulfa Drugs 09/05/2008 Medications * Be aware that medications may not be up to date on this document. Alwaysverify current medications with the patient. SYNTHROID 150 MCG TABS Take 150 mcg by mouth daily before breakfast. Active BLACK COHOSH PO Take 1 Tab by mouth daily. Active MULTI POIndications:Rh eumatoid arthritis(714.0) ([facility]) Take 1 Tab by mouth daily. 30 12 10/04/2008 Active meloxicam (MOBIC) 7.5 MG tabletIndication s:Knee pain Take 1 Tab by mouth daily. 30 10/04/2008 Active Methotrexate (Anti-Rheumatic) 2.5 MG TABSIndications: Rheumatoid arthritis(714.0) ([facility]) Take 10 Tabs by mouth every 7 days. 40 12 10/04/2008 Active tramadol (ULTRAM) 50 MG tabletIndication s:Rheumatoid arthritis(714.0) ([facility]) Take 1 Tab by mouth 3 times daily. 90 12 10/04/2008 Active acetaminophen CR (TYLENOL ARTHRITIS PAIN) 650 MG tabletIndication s:Rheumatoid arthritis(714.0) (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
--- OUTSIDE RECORDS SUMMARY | 2025-01-22 00:32 | XMS_ITS | Clinical Summary ---
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 Gender Identity Not on file Sexual Orientation [...] - Oxygen Saturation 93% 05/05/2017 11:11 AM UTILIZATION MANAGEMENT NURSE Inhaled Oxygen Concentration - - Weight 83.9 [...] Cancer Screening-Colonoscopy 07/12/2022 07/12/2012 Covid-19 Vaccine (5 - 2023-2 5 season) 2024 10/30/2021, 04/19/2021, 08/21/2020, Additional history exists Influenza Vaccine (#1) 2025 04/19/2021, 2014 Breast Cancer Screening-Mammogram 10/28/2025 025 Colon Cancer [...] [facility] Address: [address] [place] [address] [facility] Address: [facility] [address] [place] [address] [facility] Address: [address] [address] [place] [address] Care Teams Tube Sorter Relationship Specialty Start Date End Date Alex Bauer MD [address] [facility] [address] [place] [id number] PCP - General Family Medicine 06/28/24
--- OUTSIDE RECORDS SUMMARY | 2025-01-22 00:32 | XMS_ITS | Continuity of Care Document ---
Author Organization [facility] Address [address] [facility] [place] [address] Phone Care Team Providers Care Crisis Therapist Name Role Phone Rach PT, Megan Unavailable Unavailabl e Procedures Procedure Date PT Evaluation Low Complexity Therapeutic Activities Advance Directives Directive Yes / No Effective Date File Name No Information Encounters Encounter Description Practice Location Reason(s) For Visit Diagnoses Date Provider Providers Copied on Encounter [facility], [address] [place], [place] [address], [place], [place], [id number], tel:[phone] [place] No Information Rach Guzman. . Referring Provider: Alex Bauer, [address] [facility] [address], [place], [address]. tel:[phone] Family History Family Member Type Diagnosis Age At Onset No Information Payers Payer name Insurance type Covered republican ID Authortarana juan(s) AARP Medicare Complete 16 [id number] Social History Type Description Quantity Date Captured Comments Alcohol Use Details Unknown Caffeine Use Details Unknown Tobacco Use Status Current non-smoker Smoking Status Never smoker Non-Smoking Tobacco Use Details : No Details Available : No Details Available Sex Female Vital Signs Date / Time: Height Weight BMI Pulse Rate Blood Pressure Temperature Respiratory Rate Body Surface Area Head Circumference Head Circ. Percentile Wt./Favio. Percentile BMI percentile Pulse Ox Inhaled Ox 4:03 PM 66.00 in 82.100 kg (181.00 lbs) 29.2 1 kg/m eter (2) 1.95 meter(2) Chief Complaint And Reason For Visit No Information Reason For Referral Reason For Referral No Information History Of Present Illness Encounter Date Complaint History Of Prese nt Illness No Information Functional Status Date Functional Assessmen t No Information Instructions Date Instruction Additional Infor zachary Giving encouragement to exercise Related to Overweight Giving encouragement to exercise Related to Overweight Assessments Type Assessment Date No Information Patient Care Teams Name Effective Dates (start - stop) Status Members No Information
--- OUTSIDE RECORDS SUMMARY | 2025-01-22 00:32 | XMS_ITS | Referral Summary ---
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 Gender Identity Not on file Sexual Orientation Not on file Last Filed Vital Signs Vital Sign Reading Time Taken Comments Blood Pressure 131/66 02/18/2022 10:55 AM CDT Pulse 76 02/18/2022 10:55 AM CDT Temperature - - Respiratory Rate - - Oxygen Saturation 93% 05/05/2017 11:11 AM 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
--- OUTSIDE RECORDS SUMMARY | 2025-01-22 00:33 | XMS_ITS | Patient Health Record ---
Author Organization [facility] Address [address] [facility] [address] [place] [address] Care Team Providers Care Rolling Attendant Name Role Phone Juancarlos LAZARO, Alex Primary Care Provider Unavailabl e Reason For Referral No Information Plan Of Treatment No Information Insurance Providers Payer Name Payer Address Payer Phone Subscriber Number Group Number Insured Name Patient Relationship to Insured Coverage Start Date Coverage End Date [facility] Medicare Advantage [facility] [address] [address] [place] [address] [id number] Leisa Lowe Self - patient is the insured
--- OUTSIDE RECORDS SUMMARY | 2025-01-22 00:33 | XMS_ITS ---
Author Organization [facility] Address [address] [facility] [address] [place] [address] Care Team Providers Care Veneer Supervisor Name Role Phone Juancarlos LAZARO, Alex Primary Care Provider Emperatriz nelson Kristina Panda [phone] REASON FOR VISIT yd,new patient,cc Encounters Encounter Location Date Provider Diagnosis [facility] [address] [facility] [address] [place] [address] 12/15/2023 Kristina Panda Plan Of Treatment No Information Progress Notes * Mary LOWEhDOB:1955 (70 yo F)Acc No.[id number]:12/15/2023 Progress Notes Patient: Leisa ESPAÑA Appointment Provider: Pau PANDA MD :1955 A ge:68 Y S ex:Female Date:12/15/2023 Address:[address] [place], [place] [id number] Pcp:Alex Bauer MD Subjective: * Chief Complaints: * 1 . Yd,new patient,cc. * Medical History: Objective: * Vitals: Assessment: Plan: * Treatment: * Billing Information: * Visit Code: * Procedure Codes: * Electronic signature of Kristina Panda MD on 01/22/2025 at 12:32 AM CDT Sign off status: Pending * Appointment Provider: Pau PANDA MD Date: 12/15/2023 Generated for Mary ann/Reinier/Maddieitting on: 01/22/2025 12:32 AM CDT
[2025-01-22 11:26] VITALS: BP 145/87; PULSE 67; RESP 18; TEMP 36.4; O2SAT 99
[2025-01-22] MEDS: LACTATED RINGERS 1,000 ML 150 ML IV CONT (11:37)
--- NOTE | 2025-01-22 11:43 | WPDANESEPPF ---
Anes - Initial Pre Proc Eval Procedure: Operation Date: 01/22/25 13:00 Proposed Procedures p Esophagogastroduodenoscopy - Jaswinder Arndt MD Date/Time: 01/22/25 11:43 Surgeon: Jaswinder Arndt MD Pre Op Diagnosis: Gastro-esophageal reflux disease without esophagit Patient Data Age: 70 Gender: F Height: 1.65 m Weight: 84.4 kg Last Vital Signs Temp 36.4 C 01/22/25 11:26 Pulse 67 01/22/25 11:26 Resp 18 01/22/25 11:26 BP 145/87 H 01/22/25 11:26 Pulse Ox 99 01/22/25 11:26 O2 Del Method Room Air 01/22/25 11:26 Allergies Allergy/AdvReac Type Severity Reaction Status Date / Time Sulfa (Sulfonamide AdvReac Mild Nausea,head Verified 01/22/25 11:25 Antibiotics) ache Home Medications ?Medication ?Instructions ?Recorded ?Confirmed ?Type black cohosh 40 mg tablet 80 mg PO DAILY 11/20/20 01/22/25 History calcium 600 mg (as 1 tablet PO DAILY 11/20/20 01/22/25 History carbonate)-vitamin D3 5 mcg (200 unit) tablet ergocalciferol (vitamin D2) 1,250 50,000 unit PO DAILY 03/12/22 01/22/25 History mcg (50,000 unit) capsule (Vitamin D2) hydrochlorothiazide 25 mg tablet 25 mg PO DAILY 03/12/22 01/22/25 History hydroxychloroquine 200 mg tablet 200 mg PO DAILY 03/12/22 01/22/25 History levothyroxine 125 mcg tablet 125 mcg PO DAILY 03/12/22 01/22/25 History pantoprazole 40 mg tablet,delayed 40 mg PO DAILY 03/12/22 01/22/25 History release spironolactone 50 mg tablet 50 mg PO DAILY 03/12/22 01/22/25 History docusate sodium 100 mg capsule 100 mg PO DAILY 01/01/25 01/22/25 History (Col-Rite) multivitamin (Daily Multi-Vitamin 1 tablet PO DAILY 01/01/25 01/22/25 History tablet) oxybutynin chloride 10 mg 10 mg PO DAILY 01/01/25 01/22/25 History tablet,extended release 24 hr Patient hx anesthesia problems: none Family hx anesthesia problems: none Results Review: All pre-operative results and documents have been reviewed as part of the pre-operative evaluation. [facility] Past Medical History Medical History Nephrolithiasis Colon polyp History of vaginal delivery x 3 Rheumatoid arthritis Hypertension Hypothyroidism Surgical History Surgical History History of removal of calculus of renal pelvis through percutaneous nephrostomy History of total right knee replacement (~11/29/18) History of exploratory laparotomy History of tubal ligation History of knee surgery History of cataract surgery History of hammertoe correction History of bunionectomy Family History Family History Father Diabetes mellitus Mother Hyperlipidemia Other Family history of rheumatoid arthritis Social History Social History Smoking status: Never smoker Alcohol intake: never Substance use: never Substance use type: does not use Lack of Transportation: No Lack of Food: Sometimes True Current Housing: I Have Housing Concerned About Future Housing: No Difficulty Paying Gas/Electric Bills: No Difficulty Paying for Meds: No Currently Unemployed: YES Education: Decline to Answer Difficulty w/ Childcare or Family Care: No Living arrangements: with family Occupation/Education: retired Gender identity (if verbalized by the patient): Female Sexual Orientation (if Verbalized by the Patient): Straight or Heterosexual Spiritual care concerns: No Anes - Eval Final PreProcedure Day of Procedure 01/22/25 11:43 Patient weight: obese Heart: regular rate and rhythm Lungs: clear to auscultation Airway: Mallampati scale class II Neurological: alert and oriented Last oral intake: >/= 8 hours ASA classification: III Emergent: no Anesthetic plan: proceed Anesthesia type and monitoring: general GIVS and standard monitoring Results Review: All pre-operative results and documents have been reviewed as part of the pre-operative evaluation. Informed Consent: The patient's anesthetic plan and its attendant risks and benefits were discussed with the patient/family/POA. Questions were solicited and answers provided to the satisfaction of the patient/family/POA.
--- NOTE | 2025-01-22 12:36 | PM.HPGS ---
History of Present Illness History of Present Illness Consent: Risks, benefits, and alternatives have been discussed and questions answered. Patient agrees to proceed with procedure. Chief complaint: Gastro-esophageal reflux disease without esophagit Narrative: Leisa Lowe is a 70 year old female with dysphagia, egd in 2023 with 50 Fr Hsu that was done empirically, did not find rings. Review of Systems Review of Systems: All systems reviewed & are unremarkable except as noted in HPI and below PMFSH Past Medical History Medical History Nephrolithiasis Colon polyp History of vaginal delivery x 3 Rheumatoid arthritis Hypertension Hypothyroidism Surgical History Surgical History History of removal of calculus of renal pelvis through percutaneous nephrostomy History of total right knee replacement (~11/29/18) History of exploratory laparotomy History of tubal ligation History of knee surgery History of cataract surgery History of hammertoe correction History of bunionectomy Family History Family History Father Diabetes mellitus Mother Hyperlipidemia Other Family history of rheumatoid arthritis Social History Social History Smoking status: Never smoker Alcohol intake: never Substance use: never Substance use type: does not use Lack of Transportation: No Lack of Food: Sometimes True Current Housing: I Have Housing Concerned About Future Housing: No Difficulty Paying Gas/Electric Bills: No Difficulty Paying for Meds: No Currently Unemployed: YES Education: Decline to Answer Difficulty w/ Childcare or Family Care: No Living arrangements: with family Occupation/Education: retired Gender identity (if verbalized by the patient): Female Sexual Orientation (if Verbalized by the Patient): Straight or Heterosexual Spiritual care concerns: No Meds Home Medications and Allergies Home Medications ?Medication ?Instructions ?Recorded ?Confirmed ?Type black cohosh 40 mg tablet 80 mg PO DAILY 11/20/20 01/22/25 History calcium 600 mg (as 1 tablet PO DAILY 11/20/20 01/22/25 History carbonate)-vitamin D3 5 mcg (200 unit) tablet ergocalciferol (vitamin D2) 1,250 50,000 unit PO DAILY 03/12/22 01/22/25 History mcg (50,000 unit) capsule (Vitamin D2) hydrochlorothiazide 25 mg tablet 25 mg PO DAILY 03/12/22 01/22/25 History hydroxychloroquine 200 mg tablet 200 mg PO DAILY 03/12/22 01/22/25 History levothyroxine 125 mcg tablet 125 mcg PO DAILY 03/12/22 01/22/25 History pantoprazole 40 mg tablet,delayed 40 mg PO DAILY 03/12/22 01/22/25 History release spironolactone 50 mg tablet 50 mg PO DAILY 03/12/22 01/22/25 History docusate sodium 100 mg capsule 100 mg PO DAILY 01/01/25 01/22/25 History (Col-Rite) multivitamin (Daily Multi-Vitamin 1 tablet PO DAILY 01/01/25 01/22/25 History tablet) oxybutynin chloride 10 mg 10 mg PO DAILY 01/01/25 01/22/25 History tablet,extended release 24 hr Allergies Allergy/AdvReac Type Severity Reaction Status Date / Time Sulfa (Sulfonamide AdvReac Mild Nausea,head Verified 01/22/25 11:25 Antibiotics) ache Vital Signs Vital Signs - 24 hr 01/22/25 11:26 Temperature 97.6 F Pulse Rate 67 Respiratory Rate 18 Blood Pressure 145/87 H Pulse Oximetry 99 Oxygen Delivery Room Air Exam Const: General: comfortable and no acute distress HENMT: Face/Nose/Sinus: Normal nares present Eyes: General: appearance normal, both eyes and all related structures Neck: Neck: no JVD Resp: Auscultation: clear to auscultation bilaterally Cardio: Rate: regular rate Rhythm: regular rhythm GI: Inspection: non-distended GI Palp: Yes Soft to palpation Skin: General skin exam: normal color Neuro: Speech: normal speech Extrem: General: normal to inspection Psych: Mental Status: mental status grossly normal Assessment and Plan Assessment and plan (1) Dysphagia: Code(s): R13.10 - Dysphagia, unspecified Status: Acute Assessment and Plan: egd, probably will do empirical dilation again
--- NOTE | 2025-01-22 12:45 | S_PTH ---
PATIENT: Leisa Lowe LOC: [facility]#:[id number] AGE/SX: 70/F ROOM: RE01/22/[address]: Jaswinder Arndt MD : 1955 BED: DIS: 01/22/2025 SPEC #: [id number] RECD: 01/22/25 13:13 STATUS: LEE REMaryuri #: [id number] [place]: 01/22/25 12:[address]: Jaswinder Arndt DEPT: [facility] Surgical RECD BY: Ama Cavanaugh ENTERED: 01/22/25 13:14 SP TYPE: Surgical OTHR DR: Alex Bauer MD Tissues: A - Gastric Biopsy Procedures: Hematoxylin and Eosin Stain Gross and Microscopic Level 4
[2025-01-22 12:47] VITALS: BP 122/77; PULSE 76; RESP 20; O2SAT 98
[2025-01-22 12:57] VITALS: BP 115/80; PULSE 77; RESP 18; O2SAT 99
[2025-01-22 13:07] VITALS: BP 134/89; PULSE 63; RESP 18; O2SAT 99
== END 2025-01-22 13:25 | disposition home or self-care (01) ==
PROVIDERS: PCP Emergency Medicine; Referring Provider Emergency Medicine; Visit Provider Internal Medicine Gastroenterology
PROC: 0DJ08ZZ Inspection of Upper Intestinal Tract, Via Natural or Artificial Opening Endoscopic (ICD-10-PCS; CPT 43450; principal; 2025-01-22 13:00)
DX: K21.9 Gastro-esophageal reflux disease without esophagitis (principal); K44.9 Diaphragmatic hernia without obstruction or gangrene; I10 Essential (primary) hypertension; E03.9 Hypothyroidism, unspecified; Z98.890 Other specified postprocedural states; Z98.51 Tubal ligation status; Z86.0100 Personal history of colon polyps, unspecified
CPT/HCPCS: 43450; 43239; 88305; J2003; J2704; J7120